=== PATIENT | female | born 1995 | race Caucasian/White ===

== ENCOUNTER 2016-11-21 08:09 | Emergency (ER) | payer BC, MEDICAID ==
--- NOTE | 2016-11-21 08:24 | EDM.PDOC ---
ED HPI GENERAL MEDICAL PROBLEM - General Chief Complaint: ENT Problem Stated Complaint: DENTAL COMPLAINT Time Seen by Provider: 11/21/16 08:16 Source of Information: Reports: Patient, Family (father) History Limitations: Reports: No Limitations - History of Present Illness INITIAL COMMENTS - FREE TEXT/NARRATIVE: 21-year-old female presents to the ED with severe left wyatt-facial swelling. She reports she's been traveling back and forth to [facility] on a daily basis receiving intramuscular shots of antibiotic( presumeable Rocephin) as well as oral antibiotics ( Augmenting 875mg) and the the problem is worsening. She apparently did see Dr. Segovia local dentist on Saturday last week and was started on amoxicillin. She can't open her mouth at all i.e. severe trismus . Can open only about a centimeter in the midline. Marked left hemifacial swelling almost the size of a small baseball. She did believe is that the pain and infection started from an partially erupted wisdom tooth on the left side lower mandible. Patient can't eat and she can't hardly swallow due to the severity of the pain. Onset: Gradual Onset Date: 11/16/16 Duration: Day(s): Location: Reports: Face Quality: Reports: Ache, Throbbing Severity: Severe Improves with: Reports: None Worsens with: Reports: None Context: Denies: Activity, Exercise, Lifting, Sick Contact, Trauma, Other Associated Symptoms: Reports: Loss of Appetite, Malaise, Weakness Treatments [employer]: Reports: Acetaminophen Left Oral/Mouth Pain Score (Numeric/FACES): 8 - Related Data Allergies Allergy/AdvReac Type Severity Reaction Status Date / Time No Known Allergies Allergy Verified 11/21/16 08:23 Home Meds: Home Meds Amoxicillin/Potassium Clav [Augmentin 875-125 Tablet] 1 each PO BID 11/21/16 [ History] Hydrocodone/Acetaminophen [Lorcet 5-325 mg Tablet] 1 each PO Q6H PRN 11/21/16 [ History] Lidocaine 2 %. 15 ml PO Q6H PRN 11/21/16 [History] Social & Family History - Living Situation & Occupation Living situation: Reports: Single Occupation: Employed ED ROS ENT - Review of Systems Review Of Systems: See Below Constitutional: Reports: Fever, Malaise, Weakness, Fatigue, Decreased Appetite, Weight Loss. Denies: Chills HEENT: Reports: Ear Pain (Pain is referred sure left ear from the left side of face.), Throat Pain (Left side), Other Respiratory: Reports: No Symptoms (Left wyatt-facial swelling.) Cardiovascular: Reports: No Symptoms Endocrine: Reports: No Symptoms GI/Abdominal: Reports: No Symptoms : Reports: No Symptoms Musculoskeletal: Reports: No Symptoms Skin: Reports: No Symptoms Neurological: Reports: No Symptoms Psychiatric: Reports: No Symptoms Hematologic/Lymphatic: Reports: No Symptoms Immunologic: Reports: Seasonal Allergy ED EXAM, ENT - Physical Exam Exam: See Below Exam Limited By: No Limitations General Appearance: Alert, WD/WN, Mild Distress Eye Exam: Bilateral Eye: Normal Inspection Ears: Normal TMs Mouth/Throat: Other (I'm hardly able to visualize any of the intraoral cavity due to severe trismus in the midline she can open less than a centimeter. It appears there is gingiva hypertrophy and swelling along the partially erupted third molar tooth inferiorly. I cannot see any purulent material or obvious abscess. Tongue is moist.) Head: Atraumatic, Normocephalic, Facial Swelling (Severe left wyatt-facial swelling almost the half the size of a baseball which is firm and hard and very tender to touch.) Neck: Normal Inspection, Supple, Non-Tender, Full Range of Motion. No: Lymphadenopathy (L), Lymphadenopathy (R) Respiratory/Chest: No Respiratory Distress, Lungs Clear, Normal Breath Sounds, No Accessory Muscle Use Cardiovascular: Normal Peripheral Pulses, Regular Rate, Rhythm, No Edema, No Gallop, No Murmur, No Rub Back: Normal Inspection, Full Range of Motion Extremities: Normal Inspection, Normal Range of Motion, Non-Tender, Normal Capillary Refill Neurological: Alert, Oriented, CN II-XII Intact, Normal Cognition, Normal Gait, Normal Reflexes Psychiatric: Normal Affect, Normal Mood Skin: Warm, Dry, Intact, Normal Color, No Rash Course - Vital Signs Last Recorded V/S: Last Vital Signs Temp 36.3 C 11/21/16 08:14 Pulse 81 11/21/16 08:14 Resp 16 11/21/16 08:14 BP 125/82 11/21/16 08:14 Pulse Ox 98 11/21/16 08:14 - Orders/Labs/Meds Orders: Active Orders 24 hr Category Date Time Status Dextrose 5%-0.9% NaCl [Dextrose 5%-Normal Saline] 1,000 Med 11/21/16 08:30 Active ml IV ASDIRECTED Ketorolac [Toradol] Med 11/21/16 08:30 Active 30 mg IVPUSH ONETIME Medication Orders Dextrose/Sodium Chloride (Dextrose 5%-Normal Saline) 1,000 mls @ 999 mls/hr IV ASDIRECTED ANNABEL Last Admin: 11/21/16 08:35 Dose: 999 mls/hr Ketorolac Tromethamine (Toradol) 30 mg IVPUSH ONETIME ANNABEL Last Admin: 11/21/16 08:39 Dose: 30 mg Labs: Laboratory Tests 11/21/16 11/21/16 11/21/16 Range/Units 08:25 08:25 08:25 WBC 14.66 H (3.98-10.04) K/mm3 RBC 4.55 (3.98-5.22) M/mm3 Hgb 14.6 (11.2-15.7) gm/L Hct 43.2 (34.1-44.9) % MCV 94.9 H (79.4-94.8) fl MCH 32.1 (25.6-32.2) pg MCHC 33.8 (32.2-35.5) g/dl RDW Std Deviation 39.8 (36.4-46.3) fL Plt Count 411 H (182-369) K/mm3 MPV 9.6 (9.4-12.3) fl Neutrophils % (Manual) 77 H (40-60) % Band Neutrophils % 0 (0-10) % Lymphocytes % (Manual) 13 L (20-40) % Atypical Lymphs % 0 % Monocytes % (Manual) 8 (2-10) % Eosinophils % (Manual) 2 (0.7-5.8) % Basophils % (Manual) 0 L (0.1-1.2) Platelet Estimate Adequate RBC Morph Comment Normal Sodium 136 (136-145) mEq/L Potassium 3.3 L (3.5-5.1) mEq/L Chloride 98 (98-107) mEq/L Carbon Dioxide 26 (21-32) mEq/L Anion Gap 15.3 H (5-15) BUN 5 L (7-18) mg/dL Creatinine 0.7 (0.55-1.02) mg/dL Est Cr Clr Drug Dosing 117.01 mL/min Estimated GFR (MDRD) > 60 (>60) mL/min BUN/Creatinine Ratio 7.1 L (14-18) Glucose 81 (74-106) mg/dL Calcium 9.4 (8.5-10.1) mg/dL Total Bilirubin 0.9 (0.2-1.0) mg/dL AST 15 (15-37) U/L ALT 19 (14-59) U/L Alkaline Phosphatase 66 (46-116) U/L C-Reactive Protein 13.0 H* (<1.0) mg/dL Total Protein 7.9 (6.4-8.2) g/dl Albumin 3.7 (3.4-5.0) g/dl Globulin 4.2 gm/dL Albumin/Globulin Ratio 0.9 L (1-2) HCG, Qual Negative (NEGATIVE) Meds: Medications Generic Name Dose Route Start Last Admin Trade Name Sakina PRN Reason Stop Dose Admin Dextrose/Sodium Chloride 1,000 mls @ 999 mls/hr 11/21/16 08:30 11/21/16 08:35 Dextrose 5%-Normal Saline IV 999 mls/hr ASDIRECTED ANNABEL Administration Ketorolac Tromethamine 30 mg 11/21/16 08:30 11/21/16 08:39 Toradol IVPUSH 30 mg ONETIME ANNABEL Administration Discontinued Medications Generic Name Dose Route Start Last Admin Trade Name Sakina PRN Reason Stop Dose Admin Hydromorphone HCl 0.5 mg 11/21/16 08:25 11/21/16 08:41 Dilaudid IVPUSH 11/21/16 08:26 0.5 mg ONETIME ONE Administration Hydromorphone HCl 0.5 mg 11/21/16 11:25 11/21/16 11:43 Dilaudid IVPUSH 11/21/16 11:26 0.5 mg ONETIME ONE Administration Clindamycin Phosphate 900 mg/ 106 mls @ 100 mls/hr 11/21/16 08:25 11/21/16 08 :44 Sodium Chloride IV 11/21/16 09:28 100 mls/hr ONETIME ONE Administration Ceftriaxone Sodium 1 gm/ 100 mls @ 200 mls/hr 11/21/16 10:00 11/21/16 10:10 Sodium Chloride IV 11/21/16 10:29 200 mls/hr ONETIME ONE Administration Ondansetron HCl 4 mg 11/21/16 08:25 11/21/16 08:37 Zofran IVPUSH 11/21/16 08:26 4 mg ONETIME ONE Administration - Radiology Interpretation Free Text/Narrative:: 20-year-old female arrives in the ED with severe left wyatt-facial swelling secondary to a dental abscess presumably a left lower wisdom tooth that has been partially erupted for a period of time. She been going to [facility] and receiving intramuscular injections for the last 2-3 days without getting any improvement. She is also on oral antibiotics. Condition seems to have gone been going on for about 6-7 days. At this time the abscess or soft tissue swelling is confined to the left wyatt-face on the long the mandible does not appear to be extending into her lateral neck at this time. She's not sure she could be or not therefore presents just to be done with routine labs. IV will be D5 normal saline at open. Given clindamycin 900 mg IV. Toradol 30 g IV for pain relief with Dilaudid 0.5 an Zofran 4 mg IV as well. She is going to need to see maxillofacial surgeon to have more emergent management of this infective process. She will require general anesthesia to be able to get access to the tooth. Will discuss case with maxillofacial surgeon once CT is completed. - Re-Assessments/Exams Free Text/Narrative Re-Assessment/Exam: 11/21/16 08:56 hCG just was negative. She will therefore proceed to CT of the maxillofacial structures. 11/21/16 09:31 CT of the facial bones reveals no obvious dental caries. Large soft tissue mass left wyatt-facial cheek area. Low density is noted within the soft tissue swelling compatible with a phlegmon and early abscess formation. Soft tissue density measures approximate 6.6 x 2.4 cm. Mild associated enlarged lymph nodes are noted within the left side of the neck likely reactive on the basis of the above infection. Unable to find or locate an oral facial surgeon or oral surgeon in [place] at this time. usually does plastic surgery but does not do dental extractions. Dr. Forman is out of the workplace at present due to health reasons. I will try and locate a dentist in [place] that perhaps has privileges to remove teeth under anesthesia as I don't think that they'll be able to perform the procedure without a general anesthetic due to her severe trismus. The only other option would be to leave her on IV antibiotics in the hospital such as clindamycin 900 mg every 6 hours and Rocephin 2 g once daily. Lab work revealed a total white count of 14.66 with 77% it feels and no bands hemoglobin is 14.6 platelets 411,000 chemistry shows just a slight dip in her potassium at 3.3. She is still maintaining a normal anion gap of 15.3 CRP is elevated at 13.0. 11/21/16 10:21 clinical coordinator at [facility] was kind enough to keep working at the problem and identified that Dr. Lombardi who practices your nose and throat surgery can also extracted teeth due to his maxillofacial training. Therefore he is willing to accept the patient with a plan to extracted tooth and improve her abscess and swelling but right now [facility] hospital is full with no bands. Therefore clinical coordinator will be called me back once a bed is available and tentatively will be admitted to the hospital per hospitalist staffing with a consult to Dr. Lombardi in this regard. She'll remain nothing by mouth during this timeframe she can't eat anyways due to her severe trismus. I will hang Rocephin 1 g intravenously while she is waiting. She reports at present her pain is under control. 11/21/16 11:26 patient is having more pain in her left wyatt-face at this time. Will repeat Dilaudid 0.5 mg IV for pain relief. 11/21/16 11:54 bed has become available at [facility] and they called. She will therefore be able to transfer that facility per her father. She is to be a direct admission. Departure - Departure Time of Disposition: 11:55 Disposition: DC/Tfer to [facility] 02 Condition: Serious Clinical Impression: Dental abscess, Periapical abscess with facial involvement - Discharge Information Referrals: PCP,None [Primary Care Provider] - Forms: ED Department Discharge - My Orders Last 24 Hours: My Active Orders 11/21/16 08:30 Dextrose 5%-0.9% NaCl [Dextrose 5%-Normal Saline] 1,000 ml IV ASDIRECTED Ketorolac [Toradol] 30 mg IVPUSH ONETIME - Assessment/Plan Last 24 Hours: My Active Orders 11/21/16 08:30 Dextrose 5%-0.9% NaCl [Dextrose 5%-Normal Saline] 1,000 ml IV ASDIRECTED Ketorolac [Toradol] 30 mg IVPUSH ONETIME
[2016-11-21] MEDS ORDERED: Ondansetron 4 MG/2 ML SDV IVPUSH ONE (08:25)
[2016-11-21] MEDS ORDERED: HYDROmorphone 0.5 MG/0.5 ML Syringe IVPUSH ONE ×2 (08:25→11:25)
[2016-11-21] MEDS ORDERED: Clindamycin Phosphate 900 MG in Sodium Chloride 0.9% 100 ML IV ONE (08:25)
[2016-11-21] MEDS ORDERED: Dextrose 5%-0.9% NaCl 1,000 ML IV SCH (08:30)
[2016-11-21] MEDS ORDERED: Ketorolac 30 MG/ML SDV IVPUSH SCH (08:30)
--- NOTE | 2016-11-21 09:51 | CT ---
CT maxillofacial Technique: Multiple axial sections were obtained from below the mandible superiorly to above the orbits. Intravenous contrast not utilized. Findings: Diffuse soft tissue density is seen adjacent to the left side of the mandible. Low density is noted within this area compatible with phlegmon and early abscess. Diffuse subcutaneous soft tissue swelling is noted. Soft tissue density measures approximately 6.6 x 2.4 cm. This finding is indistinguishable from the left masseter muscle. Mildly enlarged lymph nodes are noted within the left side of the neck likely on a reactive basis from the infection. No discrete tooth abscess is seen. Mandible shows no erosions. Axilla shows no erosions. Paranasal sinuses are clear. Right and left globes are symmetric. Mastoid sinuses and middle ear cavities are clear. Impression: 1. Diffuse soft tissue density indistinguishable from the left masseter muscle within the left cheek adjacent to the mandible. There is low density within the soft tissue finding and findings are felt compatible with phlegmon with early abscess. Diffuse subcutaneous edema is noted. Reactive lymph nodes are seen within the left side of the neck. 2. No discrete dental abscess is appreciated. 3. No sinus disease is seen. Diagnostic code #5
[2016-11-21] MEDS ORDERED: cefTRIAXone 1 GM in Sodium Chloride 0.9% 100 ML IV ONE (10:00)
[2016-11-21 12:28] VITALS: BP 102/78
== END 2016-11-21 12:20 ==
LOC: JD.ED 08:09
DX: K04.7 Periapical abscess without sinus (principal)
CPT/HCPCS: 36415; 70486; 80053; 84703; 85025; 86140; 96361; 96365; 96367; 96375; 96376; 99285; J0696; J1170; J1885; J2405; J7030; J7042; 99284

== ENCOUNTER 2018-05-15 19:29 | Emergency (ER) | payer SELFPAY ==
[2018-05-15 19:38] VITALS: BP 126/88
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
== END 2018-05-15 19:51 ==
LOC: JD.ED 19:29
DX: F10.120 Alcohol abuse with intoxication, uncomplicated (principal); V89.2XXA Person injured in unspecified motor-vehicle accident, traffic, initial encounter
CPT/HCPCS: 36415; 80053; 85025; 99283; G0480

== ENCOUNTER 2018-06-03 21:16 | Emergency (ER) | payer MEDICAID ==
[2018-06-03 21:33] VITALS: BP 109/71
--- NOTE | 2018-06-03 21:40 | EDM.PDOC ---
ED HPI GENERAL MEDICAL PROBLEM - General Chief Complaint: Genitourinary Problem Stated Complaint: LEFT SIDE PAIN Time Seen by Provider: 06/03/18 21:40 Source of Information: Reports: Patient History Limitations: Reports: No Limitations - History of Present Illness INITIAL COMMENTS - FREE TEXT/NARRATIVE: 22-year-old female presents the ED with left flank pain which is gradually intensified over the last week. Associated mild nausea. No vomiting or diarrhea. Poor appetite. Not aware of any fever or chills per se. She reports that she does not have any dysuria urgency frequency or noted blood in her urine. She's had a previous urinary tract infection and knows what dysuria feels like. She also reports she's had a previous kidney infections on multiple occasions. Onset: Gradual Onset Date: 05/27/18 Duration: Day(s):, Getting Worse Location: Reports: Back (Left flank pain.) Quality: Reports: Ache, Throbbing Severity: Moderate (8 out of 10) Improves with: Reports: None Worsens with: Reports: None Context: Denies: Activity, Exercise, Lifting, Sick Contact, Trauma, Other Associated Symptoms: Reports: Nausea/Vomiting (Mild nausea at times). 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: Reports: Acetaminophen, Other (see below) Left Flank Pain Score (Numeric/FACES): 5 - Related Data Allergies Allergy/AdvReac Type Severity Reaction Status Date / Time No Known Allergies Allergy Verified 06/03/18 21:33 Home Meds: Home Meds Sulfamethoxazole/Trimethoprim [Bactrim Ds Tablet] 1 each PO BID #18 tablet 06/03 [Rx] Past Medical History - Past Health History Medical/Surgical History: Denies Medical/Surgical History Genitourinary History: Reports: Pyelonephritis, UTI, Recurrent (She states on multiple occasions) Social & Family History - Family History Family Medical History: Noncontributory - Tobacco Use Smoking Status *Q: Never Smoker - Caffeine Use Caffeine Use: Reports: Coffee - Recreational Drug Use Recreational Drug Use: No - Living Situation & Occupation Living situation: Reports: Single Occupation: Employed ED ROS GENERAL - Review of Systems Review Of Systems: See Below Constitutional: Reports: Chills, Malaise (Or chills at times.), Fatigue, Decreased Appetite. Denies: Fever HEENT: Reports: No Symptoms Respiratory: Reports: No Symptoms Cardiovascular: Reports: No Symptoms Endocrine: Reports: No Symptoms GI/Abdominal: Reports: Abdominal Pain. Denies: Anorexia, Black Stool, Bloody Stool (Mild left upper quadrant of the abdomen), Constipation, Diarrhea, Decreased Appetite, Difficulty Swallowing, Distension, Flatus, Hematemesis, Hematochezia, Melena : Reports: Flank Pain (Left side) Musculoskeletal: Reports: No Symptoms Skin: Reports: No Symptoms Neurological: Reports: No Symptoms Psychiatric: Reports: No Symptoms Hematologic/Lymphatic: Reports: No Symptoms Immunologic: Reports: No Symptoms ED EXAM, RENAL/ - Physical Exam Exam: See Below Exam Limited By: Intoxication (Appears to be intoxicated by alcohol mildly.) General Appearance: Alert, WD/WN, Mild Distress (Right apprehensive about the exam.), Other (Vital signs are stable with no fever. Pulse however is 116 at rest. Sats are reported OB only 95%. Her hands are cool to touch.) Eye Exam: Bilateral Eye: Normal Inspection Throat/Mouth: Normal Inspection, Normal Lips, Normal Oropharynx (Tongue is mildly dry and coated), Other Head: Atraumatic, Normocephalic Neck: Normal Inspection, Supple, Full Range of Motion. No: Lymphadenopathy (L) , Lymphadenopathy (R) Respiratory/Chest: No Respiratory Distress, Lungs Clear, Normal Breath Sounds, No Accessory Muscle Use Cardiovascular: No Edema, No Gallop, No Murmur, No Rub, Tachycardia ( Tachycardia at rest 1 16/m) GI/Abdominal: Soft, No Organomegaly, No Distention, No Abnormal Bruit, No Mass, Pelvis Stable, Tender (Bowel sounds are decreased from the norm. Moderately tender to deep palpation left upper quadrant of the abdomen.), Abnormal Bowel Sounds Back Exam: CVA Tenderness (L) (Moderate). No: CVA Tenderness (R) Extremities: Normal Inspection, Normal Range of Motion, Non-Tender, No Pedal Edema Neurological: Alert, Oriented, CN II-XII Intact, Normal Cognition, Normal Gait Psychiatric: Anxious Skin Exam: Warm, Dry, Intact, Normal Color, No Rash Course - Vital Signs Last Recorded V/S: Last Vital Signs Temp 36.6 C 06/03/18 21:30 Pulse 116 H 06/03/18 21:30 Resp 16 06/03/18 21:30 BP 109/71 06/03/18 21:30 Pulse Ox 95 06/03/18 21:30 - Orders/Labs/Meds Labs: Laboratory Tests 06/03/18 Range/Units 21:39 Urine Color Tariq H (Yellow) Urine Appearance Turbid H (Clear) Urine pH 6.0 (5.0-8.0) Ur Specific [place] 1.025 (1.005-1.030) Urine Protein 2+ H (Negative) Urine Glucose (UA) Negative (Negative) Urine Ketones 2+ H (Negative) Urine Occult Blood 2+ H (Negative) Urine Nitrite Positive H (Negative) Urine Bilirubin 1+ H (Negative) Urine Urobilinogen 1.0 (0.2-1.0) Ur Leukocyte Esterase 3+ H (Negative) Urine RBC 10-20 H (0-5) /hpf Urine WBC >100 H (0-5) /hpf Ur Epithelial Cells Not Reportable Ur Squamous Epith Cells 0-5 (0-5) /hpf Urine Bacteria Many H (FEW) /hpf Urine Mucus Many H (FEW) /hpf Meds: Medications Discontinued Medications Generic Name Dose Route Start Last Admin Trade Name Freq PRN Reason Stop Dose Admin Ibuprofen 600 mg 06/03/18 21:53 06/03/18 22:08 Motrin PO 06/03/18 21:54 600 mg ONETIME ONE Administration Levofloxacin 500 mg 06/03/18 22:21 06/03/18 22:43 Levaquin PO 06/03/18 22:22 500 mg ONETIME ONE Administration Ondansetron HCl 4 mg 06/03/18 21:52 06/03/18 22:07 Zofran Odt PO 06/03/18 21:53 4 mg ONETIME ONE Administration Oxycodone/Acetaminophen 1 tab 06/03/18 21:53 06/03/18 22:08 Percocet 325-5 Mg PO 06/03/18 21:54 Not Given ONETIME ONE - Radiology Interpretation Free Text/Narrative:: 22-year-old female presents to the ED with a history of gradually worsening left flank pain over the last week. She believes she has a kidney infection that she's had similar symptoms many times in the past. Examination does reveal left cuspid tinkling ankle tenderness as well as tenderness left upper quadrant of the abdomen on deep palpation. Afebrile since my exam. Appears to be mildly intoxicated by alcohol. Appears to be mildly volume depleted. Plan urinalysis and KUB ordered. Given Motrin 600 mg by mouth for fever and pain relief and offered a Percocet tablet for pain and she appears to be in significant discomfort. However she refused the Percocet. - Re-Assessments/Exams Free Text/Narrative Re-Assessment/Exam: 06/03/18 22:19 patient refused KUB of her abdomen.Urinalysis is back. It is tariq in color. 2+ proteinuria 2+ ketones 2+ occult blood positive nitrates. 1+ bilirubin 3+ leukocyte Esterase. microscopy of urine reveals 20 RBCs per power field and greater than 100 WBC `s per HPF and many bacteria. Urine culture ordered. Plan she'll be treated with Levaquin 500 mg by mouth now. She'll then fill a prescription for Bactrim double strength 1 tablet twice daily for the next 9 days starting tomorrow. Departure - Departure Time of Disposition: 22:21 Disposition: Home, Self-Care 01 Condition: Fair Clinical Impression: Pyelonephritis, UTI, Urinary tract infectious disease, Pyelonephritis - Discharge Information *PRESCRIPTION DRUG MONITORING PROGRAM REVIEWED*: Not Applicable *COPY OF PRESCRIPTION DRUG MONITORING REPORT IN PATIENT PERI: Not Applicable Prescriptions: Sulfamethoxazole/Trimethoprim [Bactrim Ds Tablet] 1 each PO BID #18 tablet Instructions: Pyelonephritis, Adult, [id number], Urinary Tract Infection, Adult Referrals: PCP,None [Primary Care Provider] - Forms: ED Department Discharge Additional Instructions: Evaluation in the emergency room tonight in regards to pain in the left flank. Not aware of any significant fever but noted chills last few days. Note pain with urination or frequency. Examination revealed acute pain in the distribution of the left kidney and left upper abdominal tenderness suggestive of underlying infection in the urinary tract. Urinalysis proved to be strongly positive for urinary tract infection. Therefore you have a kidney infection on the left side. You are treated with Motrin 600 mg by mouth. He refused Percocet tablet for pain relief. Initial dose of antibiotic is Levaquin 500 mg given by mouth in the ED. You will need to fill a prescription for antibiotic tomorrow Bactrim double strength 1 tablet twice daily for the next 9 days to clear up infection completely. Continues use Motrin 600 mg every 6 hours to relieve pain and inflammation. Expect marked improvement over the next 36-48 hours. Of course drink plenty of fluids to flush the urinary tract system. Need to return to the hospitalist with develop high fever greater than 102 or severe chills/ shakes for nausea and vomiting.
[2018-06-03] MEDS ORDERED: Ondansetron 4 MG Tab.DIS PO ONE (21:52)
[2018-06-03] MEDS ORDERED: Ibuprofen 600 MG Tab PO ONE (21:53)
[2018-06-03] MEDS ORDERED: Acetaminophen/oxyCODONE 325-5 MG Tab PO ONE (21:53)
[2018-06-03] MEDS ORDERED: Levofloxacin 250 MG Tab PO ONE (22:21)
== END 2018-06-03 22:45 | disposition home or self-care (01) ==
LOC: JD.ED 21:16
DX: N12 Tubulo-interstitial nephritis, not specified as acute or chronic (principal)
CPT/HCPCS: 81001; 87086; 87088; 87186; 99284; A9270

== ENCOUNTER 2018-08-07 14:21 | Inpatient (IN) | payer MEDICAID, OTHER ==
[2018-08-07] MEDS ORDERED: Sodium Chloride 0.9% 10 ML Syringe FLUSH PRN ×2 (16:04→20:50)
[2018-08-07] MEDS ORDERED: Sodium Chloride 0.9% 1,000 ML IV ONE (16:04)
[2018-08-07 16:56] LABS: ACETAMINOPHEN 0 ug/mL (10-30)
--- NOTE | 2018-08-07 17:54 | EDM.PDOCBH ---
ED HPI GENERAL MEDICAL PROBLEM - General Chief Complaint: Behavioral/Psych Stated Complaint: NEEDS BACK IN TO [facility] Time Seen by Provider: 08/07/18 15:55 Source of Information: Reports: Patient, Family (mother) History Limitations: Reports: No Limitations - History of Present Illness INITIAL COMMENTS - FREE TEXT/NARRATIVE: 22-year-old female brought in for suicide attempts. Reportedly the patient tried to commit suicide last night and today around noon. She attempted to strangle herself using a vacuum cord and when this did not work she attempted to use a trash bag. Reportedly she had loss of consciousness with this episode, unclear how long she was out for. She is currently denying any neck pain, throat pain or any difficulty breathing. Patient's is lethargic; most of the history is obtained from her mother. 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 She also reported she drink about 3 beers today. Mom also states she used to use marijuana but no longer for this. mom states she also heard that she was huffing. Patient went to [facility] 3 weeks ago and checked herself out of the crisis bed after about 30 minutes. She has not seen a psychiatrist in the last 5 years. Has diagnosis of borderline personality disorder and anxiety disorder. she is not currently on any medications. she currently lives in an apartment with her cousin who also abuses illicit substances. Mom states she has not been able to hold a job in several years. - Related Data Allergies Allergy/AdvReac Type Severity Reaction Status Date / Time No Known Allergies Allergy Verified 06/03/18 21:33 Home Meds: Home Meds . [No Known Home Meds] 08/07/18 [History] Past Medical History - Past Health History Medical/Surgical History: Denies Medical/Surgical History Genitourinary History: Reports: Pyelonephritis, UTI, Recurrent Social & Family History - Family History Family Medical History: Noncontributory - Tobacco Use Smoking Status *Q: Current Every Day Smoker Years of Tobacco use: 2 Packs/Tins Daily: 1 - Caffeine Use Caffeine Use: Reports: Coffee - Alcohol Use Date of Last Drink: 08/07/18 - Recreational Drug Use Recreational Drug Use: Yes Drug Use in Last 12 Months: Yes Recreational Drug Type: Reports: Other (see below) Other Recreational Drug Type: "anything I can get" Recreational Drug Last Use: 08/04/18 - Living Situation & Occupation Living situation: Reports: Single Occupation: Employed ED ROS GENERAL - Review of Systems Review Of Systems: See Below HEENT: Denies: Throat Pain Respiratory: Denies: Shortness of Breath, Cough Cardiovascular: Denies: Chest Pain Skin: Reports: Bruising (neck) Psychiatric: Reports: Suicidal Ideation ED EXAM, BEHAVIORAL HEALTH - Physical Exam Exam: See Below Exam Limited By: Intoxication General Appearance: No Apparent Distress, Lethargic, Other (smells of etoh) Eye Exam: Bilateral Eye: EOMI, Normal Inspection, PERRL Ears: Normal External Exam, Normal Canal, Hearing Grossly Normal, Normal TMs Nose: Normal Inspection Throat/Mouth: Normal Inspection, Normal Lips, Normal Oropharynx, Normal Voice, No Airway Compromise, Other (no petichae to the soft palate noted) Head: Atraumatic, Normocephalic Neck: Normal Inspection Respiratory/Chest: No Respiratory Distress, Lungs Clear, Normal Breath Sounds Cardiovascular: Normal Peripheral Pulses, Regular Rate, Rhythm, No Murmur Neurological: Other (arousable ) Psychiatric: Poor Eye Contact, Uncooperative, Suicidal Plan, Suicidal Thoughts, Threatening Behavior Skin Exam: Warm, Normal color, Signs of self injury (bruises to the bilteral sides of the neck) COURSE, BEHAVIORAL HEALTH COMP - Course Vital Signs: Last Vital Signs Temp 98.5 F 08/08/18 07:52 Pulse 76 08/08/18 07:52 Resp 18 08/08/18 07:52 BP 98/72 08/08/18 07:52 Pulse Ox 97 08/08/18 07:52 Orders, Labs, Meds: Active Orders 24 hr Category Date Time Status Peripheral IV Care [RC] Q2HR Care 08/07/18 16:04 Active Sodium Chloride 0.9% [Saline Flush] Med 08/07/18 16:04 Active 10 ml FLUSH ASDIRECTED PRN Peripheral IV Insertion Adult [OM.PC] Routine Oth 08/07/18 16:04 Ordered Medication Orders Chlordiazepoxide HCl (Librium) 25 mg PO Q1H PRN PRN Reason: CIWAA >8 Miscellaneous Information (Remove Patch) 1 ea TRDERM 2100 ANNABEL Nicotine (Habitrol) 21 mg TRDERM 2100 ANNABEL Last Admin: 08/07/18 20:59 Dose: 21 mg Nicotine (Habitrol) 21 mg TRDERM ONETIME ONE Stop: 08/08/18 13:31 Ondansetron HCl (Zofran) 4 mg IV Q4H PRN PRN Reason: Nausea/Vomiting Sodium Chloride (Saline Flush) 10 ml FLUSH ASDIRECTED PRN PRN Reason: Keep Vein Open Last Admin: 08/07/18 16:25 Dose: 10 ml Laboratory Tests 08/07/18 08/07/18 08/07/18 Range/Units 16:20 16:20 16:20 WBC 7.78 (3.98-10.04) K/mm3 RBC 4.69 (3.98-5.22) M/mm3 Hgb 14.3 D (11.2-15.7) gm/L Hct 43.0 (34.1-44.9) % MCV 91.7 (79.4-94.8) fl MCH 30.5 (25.6-32.2) pg MCHC 33.3 (32.2-35.5) g/dl RDW Std Deviation 41.8 (36.4-46.3) fL Plt Count 354 (182-369) K/mm3 MPV 9.5 (9.4-12.3) fl Neutrophils % (Manual) 72 H (40-60) % Band Neutrophils % 0 (0-10) % Lymphocytes % (Manual) 15 L (20-40) % Atypical Lymphs % 0 % Monocytes % (Manual) 5 (2-10) % Eosinophils % (Manual) 5 (0.7-5.8) % Basophils % (Manual) 3 H (0.1-1.2) Platelet Estimate Adequate RBC Morph Comment Normal Puncture Site ABG pH (7.35-7.45) ABG pCO2 (35.0-45.0) mmHg ABG pO2 (80.0-100.0) mmHg ABG HCO3 (22.0-26.0) meq/L ABG O2 Saturation (96.0-97.0) % ABG Base Excess (-2-2.0) Karlos Test O2 Delivery Device FiO2 (21.00-100.00) % Sodium 142 (136-145) mEq/L Potassium 3.3 L (3.5-5.1) mEq/L Chloride 107 (98-107) mEq/L Carbon Dioxide 24 (21-32) mEq/L Anion Gap 14.3 (5-15) BUN 6 L (7-18) mg/dL Creatinine 0.6 (0.55-1.02) mg/dL Est Cr Clr Drug Dosing 140.60 mL/min Estimated GFR (MDRD) > 60 (>60) mL/min BUN/Creatinine Ratio 10.0 L (14-18) Glucose 99 (74-106) mg/dL Calcium 8.8 (8.5-10.1) mg/dL Total Bilirubin 0.3 (0.2-1.0) mg/dL AST 16 (15-37) U/L ALT 26 (14-59) U/L Alkaline Phosphatase 86 (46-116) U/L Total Protein 6.5 (6.4-8.2) g/dl Albumin 3.5 (3.4-5.0) g/dl Globulin 3.0 gm/dL Albumin/Globulin Ratio 1.2 (1-2) TSH 3rd Generation 0.667 (0.358-3.74) uIU/mL HCG, Qual Negative (NEGATIVE) Urine Color (Yellow) Urine Appearance (Clear) Urine pH (5.0-8.0) Ur Specific [place] (1.005-1.030) Urine Protein (Negative) Urine Glucose (UA) (Negative) Urine Ketones (Negative) Urine Occult Blood (Negative) Urine Nitrite (Negative) Urine Bilirubin (Negative) Urine Urobilinogen (0.2-1.0) Ur Leukocyte Esterase (Negative) Urine RBC (0-5) /hpf Urine WBC (0-5) /hpf Ur Squamous Epith Cells (0-5) /hpf Urine Bacteria (FEW) /hpf Urine Mucus (FEW) /hpf Salicylates (2.8-20) mg/dL Urine Opiates Screen (IVGIXK=161) Ur Buprenorphine Scrn (CUTOFF=10) Ur Oxycodone Screen (AKK7DQ=051) Urine Methadone Screen (NDURWQ=666) Ur Propoxyphene Screen (BSWLSK=136) Acetaminophen 0 L (10-30) ug/mL Ur Barbiturates Screen (NJYRIA=436) Ur Tricyclics Screen (WOPGWP=189) Ur Phencyclidine Scrn (CUTOFF=25) Ur Amphetamine Screen (JICWLI=917) U Methamphetamines Scrn (AJZIFG=806) U Benzodiazepines Scrn (XJLKOV=710) U Cocaine Metab Screen (SUQAIS=407) U Marijuana (THC) Screen (CUTOFF=50) Ethyl Alcohol 0.02 (0.00) gm% 08/07/18 08/07/18 08/07/18 Range/Units 16:20 17:24 17:25 WBC (3.98-10.04) K/mm3 RBC (3.98-5.22) M/mm3 Hgb (11.2-15.7) gm/L Hct (34.1-44.9) % MCV (79.4-94.8) fl MCH (25.6-32.2) pg MCHC (32.2-35.5) g/dl RDW Std Deviation (36.4-46.3) fL Plt Count (182-369) K/mm3 MPV (9.4-12.3) fl Neutrophils % (Manual) (40-60) % Band Neutrophils % (0-10) % Lymphocytes % (Manual) (20-40) % Atypical Lymphs % % Monocytes % (Manual) (2-10) % Eosinophils % (Manual) (0.7-5.8) % Basophils % (Manual) (0.1-1.2) Platelet Estimate RBC Morph Comment Puncture Site ABG pH (7.35-7.45) ABG pCO2 (35.0-45.0) mmHg ABG pO2 (80.0-100.0) mmHg ABG HCO3 (22.0-26.0) meq/L ABG O2 Saturation (96.0-97.0) % ABG Base Excess (-2-2.0) Karlos Test O2 Delivery Device FiO2 (21.00-100.00) % Sodium (136-145) mEq/L Potassium (3.5-5.1) mEq/L Chloride (98-107) mEq/L Carbon Dioxide (21-32) mEq/L Anion Gap (5-15) BUN (7-18) mg/dL Creatinine (0.55-1.02) mg/dL Est Cr Clr Drug Dosing mL/min Estimated GFR (MDRD) (>60) mL/min BUN/Creatinine Ratio (14-18) Glucose (74-106) mg/dL Calcium (8.5-10.1) mg/dL Total Bilirubin (0.2-1.0) mg/dL AST (15-37) U/L ALT (14-59) U/L Alkaline Phosphatase (46-116) U/L Total Protein (6.4-8.2) g/dl Albumin (3.4-5.0) g/dl Globulin gm/dL Albumin/Globulin Ratio (1-2) TSH 3rd Generation (0.358-3.74) uIU/mL HCG, Qual (NEGATIVE) Urine Color Yellow (Yellow) Urine Appearance Clear (Clear) Urine pH 7.0 (5.0-8.0) Ur Specific [place] 1.020 (1.005-1.030) Urine Protein Negative (Negative) Urine Glucose (UA) Negative (Negative) Urine Ketones Negative (Negative) Urine Occult Blood Negative (Negative) Urine Nitrite Negative (Negative) Urine Bilirubin Negative (Negative) Urine Urobilinogen 0.2 (0.2-1.0) Ur Leukocyte Esterase Negative (Negative) Urine RBC Not seen (0-5) /hpf Urine WBC 0-5 (0-5) /hpf Ur Squamous Epith Cells 5-10 H (0-5) /hpf Urine Bacteria Few (FEW) /hpf Urine Mucus Few (FEW) /hpf Salicylates 0.9 L (2.8-20) mg/dL Urine Opiates Screen Negative (WHDFCJ=045) Ur Buprenorphine Scrn Negative (CUTOFF=10) Ur Oxycodone Screen Negative (SDB9UO=101) Urine Methadone Screen Negative (XJXLJE=624) Ur Propoxyphene Screen Negative (RPBOOV=552) Acetaminophen (10-30) ug/mL Ur Barbiturates Screen Negative (ZEMPNS=512) Ur Tricyclics Screen Negative (HPQRYR=897) Ur Phencyclidine Scrn Negative (CUTOFF=25) Ur Amphetamine Screen Negative (CPRHYY=041) U Methamphetamines Scrn Presumptive positive H (RDNGDA=800) U Benzodiazepines Scrn Negative (PCUNQL=166) U Cocaine Metab Screen Negative (AYTQBU=643) U Marijuana (THC) Screen Presumptive positive H (CUTOFF=50) Ethyl Alcohol (0.00) gm% 08/07/18 Range/Units 18:23 WBC (3.98-10.04) K/mm3 RBC (3.98-5.22) M/mm3 Hgb (11.2-15.7) gm/L Hct (34.1-44.9) % MCV (79.4-94.8) fl MCH (25.6-32.2) pg MCHC (32.2-35.5) g/dl RDW Std Deviation (36.4-46.3) fL Plt Count (182-369) K/mm3 MPV (9.4-12.3) fl Neutrophils % (Manual) (40-60) % Band Neutrophils % (0-10) % Lymphocytes % (Manual) (20-40) % Atypical Lymphs % % Monocytes % (Manual) (2-10) % Eosinophils % (Manual) (0.7-5.8) % Basophils % (Manual) (0.1-1.2) Platelet Estimate RBC Morph Comment Puncture Site Rt radial ABG pH 7.41 (7.35-7.45) ABG pCO2 38.8 (35.0-45.0) mmHg ABG pO2 91.0 (80.0-100.0) mmHg ABG HCO3 23.9 (22.0-26.0) meq/L ABG O2 Saturation 97.9 H (96.0-97.0) % ABG Base Excess -0.1 (-2-2.0) Karlos Test Positive O2 Delivery Device Room air FiO2 21.00 (21.00-100.00) % Sodium (136-145) mEq/L Potassium (3.5-5.1) mEq/L Chloride (98-107) mEq/L Carbon Dioxide (21-32) mEq/L Anion Gap (5-15) BUN (7-18) mg/dL Creatinine (0.55-1.02) mg/dL Est Cr Clr Drug Dosing mL/min Estimated GFR (MDRD) (>60) mL/min BUN/Creatinine Ratio (14-18) Glucose (74-106) mg/dL Calcium (8.5-10.1) mg/dL Total Bilirubin (0.2-1.0) mg/dL AST (15-37) U/L ALT (14-59) U/L Alkaline Phosphatase (46-116) U/L Total Protein (6.4-8.2) g/dl Albumin (3.4-5.0) g/dl Globulin gm/dL Albumin/Globulin Ratio (1-2) TSH 3rd Generation (0.358-3.74) uIU/mL HCG, Qual (NEGATIVE) Urine Color (Yellow) Urine Appearance (Clear) Urine pH (5.0-8.0) Ur Specific [place] (1.005-1.030) Urine Protein (Negative) Urine Glucose (UA) (Negative) Urine Ketones (Negative) Urine Occult Blood (Negative) Urine Nitrite (Negative) Urine Bilirubin (Negative) Urine Urobilinogen (0.2-1.0) Ur Leukocyte Esterase (Negative) Urine RBC (0-5) /hpf Urine WBC (0-5) /hpf Ur Squamous Epith Cells (0-5) /hpf Urine Bacteria (FEW) /hpf Urine Mucus (FEW) /hpf Salicylates (2.8-20) mg/dL Urine Opiates Screen (WEPCSD=816) Ur Buprenorphine Scrn (CUTOFF=10) Ur Oxycodone Screen (QZB0DH=903) Urine Methadone Screen (OTRUTR=625) Ur Propoxyphene Screen (TVTSXX=519) Acetaminophen (10-30) ug/mL Ur Barbiturates Screen (PWBLMI=569) Ur Tricyclics Screen (IBHJWO=919) Ur Phencyclidine Scrn (CUTOFF=25) Ur Amphetamine Screen (RCWGWP=791) U Methamphetamines Scrn (MPRJRD=832) U Benzodiazepines Scrn (XTVUHI=375) U Cocaine Metab Screen (LGUMDR=553) U Marijuana (THC) Screen (CUTOFF=50) Ethyl Alcohol (0.00) gm% Medications Generic Name Dose Route Start Last Admin Trade Name Freq PRN Reason Stop Dose Admin Chlordiazepoxide HCl 25 mg 08/07/18 20:42 Librium PO Q1H PRN CIWAA >8 Miscellaneous Information 1 ea 08/08/18 21:00 Remove Patch TRDERM 2100 ANNABEL Nicotine 21 mg 08/07/18 21:00 08/07/18 20:59 Habitrol TRDERM 21 mg 2100 ANNABEL Administration Nicotine 21 mg 08/08/18 13:30 Habitrol TRDERM 08/08/18 13:31 ONETIME ONE Ondansetron HCl 4 mg 08/07/18 20:50 Zofran IV Q4H PRN Nausea/Vomiting Sodium Chloride 10 ml 08/07/18 16:04 08/07/18 16:25 Saline Flush FLUSH 10 ml ASDIRECTED PRN Administration Keep Vein Open Discontinued Medications Generic Name Dose Route Start Last Admin Trade Name Freq PRN Reason Stop Dose Admin Sodium Chloride 1,000 mls @ 999 mls/hr 08/07/18 16:04 08/07/18 16:25 Normal Saline IV 08/07/18 17:04 999 mls/hr ONETIME ONE Administration Lorazepam 1 mg 08/07/18 19:06 08/07/18 19:10 Ativan IVPUSH 08/07/18 19:07 1 mg ONETIME ONE Administration Lorazepam Confirm 08/07/18 19:07 08/07/18 19:28 Ativan Administered 08/07/18 19:08 Not Given Dose 2 mg .ROUTE .STK-MED ONE Nicotine 21 mg 08/08/18 09:00 Habitrol TRDERM DAILY ANNABEL Potassium Chloride 20 meq 08/07/18 21:15 08/08/18 08:04 Klor-Con M20 PO 08/08/18 09:01 20 meq BID ANNABEL Administration Sodium Chloride 10 ml 08/07/18 20:50 Saline Flush FLUSH ASDIRECTED PRN Keep Vein Open Re-Assessment/Re-Exam: 18:00 I do feel she needs inpatient psychiatric care and is not a candidate for [facility]. Her lethargy is likely from coming off methamphetamine, however, given her current state and attempted strangulation earlier I feel she would be best served observed in the hospital before going to inpatient psych. With the bruising to the neck and reported LOC concern she may develop swelling to the neck which may impede airway. This is unlikely but should be observed before going to inpatient psych. 24 hour hold paperwork has been completed. Spoke with Dr. Landry who requested an ABG. He would like her to go to the ICU due to concerns over airway. She will be a 1:1. Admitted under Dr. Landry to the ICU. Departure - Departure Time of Disposition: 18:00 Disposition: Admitted As Inpatient 64 Condition: Serious Clinical Impression: Suicidal intent, Alcohol abuse Neck contusion Qualifiers: Encounter type: initial encounter Qualified Code(s): S10.93XA - Contusion of unspecified part of neck, initial encounter - Discharge Information *PRESCRIPTION DRUG MONITORING PROGRAM REVIEWED*: No *COPY OF PRESCRIPTION DRUG MONITORING REPORT IN PATIENT PERI: No - My Orders Last 24 Hours: My Active Orders 08/07/18 16:04 Peripheral IV Care [RC] Q2HR Sodium Chloride 0.9% [Saline Flush] 10 ml FLUSH ASDIRECTED PRN Peripheral IV Insertion Adult [OM.PC] Routine - Assessment/Plan Last 24 Hours: My Active Orders 08/07/18 16:04 Peripheral IV Care [RC] Q2HR Sodium Chloride 0.9% [Saline Flush] 10 ml FLUSH ASDIRECTED PRN Peripheral IV Insertion Adult [OM.PC] Routine
[2018-08-07] MEDS ORDERED: LORazepam 2 MG/ML SDV IVPUSH ONE (19:06)
[2018-08-07] MEDS ORDERED: LORazepam 2 MG/ML SDV ONE (19:07)
[2018-08-07] MEDS ORDERED: chlordiazePOXIDE 25 MG Cap PO PRN (20:42)
[2018-08-07] MEDS ORDERED: Ondansetron 4 MG/2 ML SDV IV PRN (20:50)
--- NOTE | 2018-08-07 20:59 | PCM.HP ---
H&P History of Present Illness - General Date of Service: 08/07/18 Admit Problem/Dx: Admission Diagnosis/Problem Admission Diagnosis/Problem Suicidal intent - History of Present Illness Initial Comments - Free Text/Narative: 22-year-old female a comes in secondary to suicidal ideation. Patient states that couple of days ago she took a vacuum dry cleaner presser cord and wrapped it around her neck. She got lightheaded and decided that was a good idea. Couple days later, today, she decided to try it with a plastic bag because it was more flexible. Patient was brought in with contusions to her neck and suicidal ideation. She states that she uses meth daily, last use 3 days ago, drinks 3-5 drinks of alcohol a day, and uses marijuana. She did receive Ativan in the emergency room because of anxiety. She denies any shortness breath, difficulty swallowing, change in voice, or neck pain. - Related Data Allergies/Adverse Reactions: Allergies Allergy/AdvReac Type Severity Reaction Status Date / Time No Known Allergies Allergy Verified 06/03/18 21:33 Home Medications: Home Meds . [No Known Home Meds] 08/07/18 [History] Past Medical History - Past Health History Medical/Surgical History: Denies Medical/Surgical History Genitourinary History: Reports: Pyelonephritis, UTI, Recurrent Social & Family History - Family History Family Medical History: Noncontributory - Tobacco Use Smoking Status *Q: Current Every Day Smoker Years of Tobacco use: 3 Packs/Tins Daily: 1 - Caffeine Use Caffeine Use: Reports: Coffee - Alcohol Use Days Per Week of Alcohol Use: 7 Number of Drinks Per Day: 5 Total Drinks Per Week: 35 Date of Last Drink: 08/07/18 - Recreational Drug Use Recreational Drug Use: Yes Drug Use in Last 12 Months: Yes Recreational Drug Type: Reports: Marijuana/Hashish, Methamphetamine Other Recreational Drug Type: "anything I can get" Recreational Drug Use Frequency: Daily Recreational Drug Last Use: 08/04/18 - Living Situation & Occupation Living situation: Reports: Single Occupation: Employed H&P Review of Systems - Review of Systems: Review Of Systems: ROS reveals no pertinent complaints other than HPI. Exam - Exam Exam: See Below - Vital Signs Vital Signs: Last Vital Signs Temp 96.7 F 08/07/18 14:38 Pulse 99 08/07/18 14:38 Resp 16 08/07/18 14:38 BP 127/83 08/07/18 14:38 Pulse Ox 96 08/07/18 14:38 Weight: 161 lb 12.8 oz - Exam Quality Assessment: No: Supplemental Oxygen General: Alert, Oriented, Sedated HEENT: Conjunctiva Clear, Mucosa Moist & [place], Posterior Pharynx Clear Neck: Supple, Trachea Midline, Full Range of Motion, Other (Bruising and a mild abrasion on the left side of her neck 2. It is bluish in color.) Lungs: Clear to Auscultation, Normal Respiratory Effort Cardiovascular: Regular Rate, Regular Rhythm, Normal S1, Normal S2 GI/Abdominal Exam: Normal Bowel Sounds, Soft, Non-Tender, No Organomegaly, No Distention, No Abnormal Bruit Extremities: Normal Inspection, Normal Range of Motion, No Pedal Edema, Normal Capillary Refill Skin: Warm, Dry, Intact Neurological: Cranial Nerves Intact Neuro Extensive - Mental Status: Oriented x3 Neuro Extensive - Motor, Sensory, Reflexes: CN II-XII Intact Psychiatric: Alert, Depressed - Patient Data Lab Results Last 24 hrs: Laboratory Results - last 24 hr 08/07/18 08/07/18 08/07/18 Range/Units 16:20 16:20 16:20 WBC 7.78 (3.98-10.04) K/mm3 RBC 4.69 (3.98-5.22) M/mm3 Hgb 14.3 D (11.2-15.7) gm/L Hct 43.0 (34.1-44.9) % MCV 91.7 (79.4-94.8) fl MCH 30.5 (25.6-32.2) pg MCHC 33.3 (32.2-35.5) g/dl RDW Std Deviation 41.8 (36.4-46.3) fL Plt Count 354 (182-369) K/mm3 MPV 9.5 (9.4-12.3) fl Neutrophils % (Manual) 72 H (40-60) % Band Neutrophils % 0 (0-10) % Lymphocytes % (Manual) 15 L (20-40) % Atypical Lymphs % 0 % Monocytes % (Manual) 5 (2-10) % Eosinophils % (Manual) 5 (0.7-5.8) % Basophils % (Manual) 3 H (0.1-1.2) Platelet Estimate Adequate RBC Morph Comment Normal Puncture Site ABG pH (7.35-7.45) ABG pCO2 (35.0-45.0) mmHg ABG pO2 (80.0-100.0) mmHg ABG HCO3 (22.0-26.0) meq/L ABG O2 Saturation (96.0-97.0) % ABG Base Excess (-2-2.0) Karlos Test O2 Delivery Device FiO2 (21.00-100.00) % Sodium 142 (136-145) mEq/L Potassium 3.3 L (3.5-5.1) mEq/L Chloride 107 (98-107) mEq/L Carbon Dioxide 24 (21-32) mEq/L Anion Gap 14.3 (5-15) BUN 6 L (7-18) mg/dL Creatinine 0.6 (0.55-1.02) mg/dL Est Cr Clr Drug Dosing 140.60 mL/min Estimated GFR (MDRD) > 60 (>60) mL/min BUN/Creatinine Ratio 10.0 L (14-18) Glucose 99 (74-106) mg/dL Calcium 8.8 (8.5-10.1) mg/dL Total Bilirubin 0.3 (0.2-1.0) mg/dL AST 16 (15-37) U/L ALT 26 (14-59) U/L Alkaline Phosphatase 86 (46-116) U/L Total Protein 6.5 (6.4-8.2) g/dl Albumin 3.5 (3.4-5.0) g/dl Globulin 3.0 gm/dL Albumin/Globulin Ratio 1.2 (1-2) TSH 3rd Generation 0.667 (0.358-3.74) uIU/mL HCG, Qual Negative (NEGATIVE) Urine Color (Yellow) Urine Appearance (Clear) Urine pH (5.0-8.0) Ur Specific [place] (1.005-1.030) Urine Protein (Negative) Urine Glucose (UA) (Negative) Urine Ketones (Negative) Urine Occult Blood (Negative) Urine Nitrite (Negative) Urine Bilirubin (Negative) Urine Urobilinogen (0.2-1.0) Ur Leukocyte Esterase (Negative) Urine RBC (0-5) /hpf Urine WBC (0-5) /hpf Ur Squamous Epith Cells (0-5) /hpf Urine Bacteria (FEW) /hpf Urine Mucus (FEW) /hpf Salicylates (2.8-20) mg/dL Urine Opiates Screen (MHBLWG=147) Ur Buprenorphine Scrn (CUTOFF=10) Ur Oxycodone Screen (EUI7VY=422) Urine Methadone Screen (SQVMJA=061) Ur Propoxyphene Screen (DRDUAA=638) Acetaminophen 0 L (10-30) ug/mL Ur Barbiturates Screen (WNDKRR=003) Ur Tricyclics Screen (MOHZAT=180) Ur Phencyclidine Scrn (CUTOFF=25) Ur Amphetamine Screen (JRDDJH=954) U Methamphetamines Scrn (GSRBZR=781) U Benzodiazepines Scrn (FHFLPV=321) U Cocaine Metab Screen (WSXOIF=435) U Marijuana (THC) Screen (CUTOFF=50) Ethyl Alcohol 0.02 (0.00) gm% 08/07/18 08/07/18 08/07/18 Range/Units 16:20 17:24 17:25 WBC (3.98-10.04) K/mm3 RBC (3.98-5.22) M/mm3 Hgb (11.2-15.7) gm/L Hct (34.1-44.9) % MCV (79.4-94.8) fl MCH (25.6-32.2) pg MCHC (32.2-35.5) g/dl RDW Std Deviation (36.4-46.3) fL Plt Count (182-369) K/mm3 MPV (9.4-12.3) fl Neutrophils % (Manual) (40-60) % Band Neutrophils % (0-10) % Lymphocytes % (Manual) (20-40) % Atypical Lymphs % % Monocytes % (Manual) (2-10) % Eosinophils % (Manual) (0.7-5.8) % Basophils % (Manual) (0.1-1.2) Platelet Estimate RBC Morph Comment Puncture Site ABG pH (7.35-7.45) ABG pCO2 (35.0-45.0) mmHg ABG pO2 (80.0-100.0) mmHg ABG HCO3 (22.0-26.0) meq/L ABG O2 Saturation (96.0-97.0) % ABG Base Excess (-2-2.0) Karlos Test O2 Delivery Device FiO2 (21.00-100.00) % Sodium (136-145) mEq/L Potassium (3.5-5.1) mEq/L Chloride (98-107) mEq/L Carbon Dioxide (21-32) mEq/L Anion Gap (5-15) BUN (7-18) mg/dL Creatinine (0.55-1.02) mg/dL Est Cr Clr Drug Dosing mL/min Estimated GFR (MDRD) (>60) mL/min BUN/Creatinine Ratio (14-18) Glucose (74-106) mg/dL Calcium (8.5-10.1) mg/dL Total Bilirubin (0.2-1.0) mg/dL AST (15-37) U/L ALT (14-59) U/L Alkaline Phosphatase (46-116) U/L Total Protein (6.4-8.2) g/dl Albumin (3.4-5.0) g/dl Globulin gm/dL Albumin/Globulin Ratio (1-2) TSH 3rd Generation (0.358-3.74) uIU/mL HCG, Qual (NEGATIVE) Urine Color Yellow (Yellow) Urine Appearance Clear (Clear) Urine pH 7.0 (5.0-8.0) Ur Specific [place] 1.020 (1.005-1.030) Urine Protein Negative (Negative) Urine Glucose (UA) Negative (Negative) Urine Ketones Negative (Negative) Urine Occult Blood Negative (Negative) Urine Nitrite Negative (Negative) Urine Bilirubin Negative (Negative) Urine Urobilinogen 0.2 (0.2-1.0) Ur Leukocyte Esterase Negative (Negative) Urine RBC Not seen (0-5) /hpf Urine WBC 0-5 (0-5) /hpf Ur Squamous Epith Cells 5-10 H (0-5) /hpf Urine Bacteria Few (FEW) /hpf Urine Mucus Few (FEW) /hpf Salicylates 0.9 L (2.8-20) mg/dL Urine Opiates Screen Negative (UZGBHB=994) Ur Buprenorphine Scrn Negative (CUTOFF=10) Ur Oxycodone Screen Negative (JWX9BW=231) Urine Methadone Screen Negative (PFKRJS=298) Ur Propoxyphene Screen Negative (MYUWUK=293) Acetaminophen (10-30) ug/mL Ur Barbiturates Screen Negative (ETYBIS=059) Ur Tricyclics Screen Negative (ONBRUN=883) Ur Phencyclidine Scrn Negative (CUTOFF=25) Ur Amphetamine Screen Negative (UGQJQX=491) U Methamphetamines Scrn Presumptive positive H (LCENHE=204) U Benzodiazepines Scrn Negative (EJTUQD=411) U Cocaine Metab Screen Negative (LLAWZI=869) U Marijuana (THC) Screen Presumptive positive H (CUTOFF=50) Ethyl Alcohol (0.00) gm% 08/07/18 Range/Units 18:23 WBC (3.98-10.04) K/mm3 RBC (3.98-5.22) M/mm3 Hgb (11.2-15.7) gm/L Hct (34.1-44.9) % MCV (79.4-94.8) fl MCH (25.6-32.2) pg MCHC (32.2-35.5) g/dl RDW Std Deviation (36.4-46.3) fL Plt Count (182-369) K/mm3 MPV (9.4-12.3) fl Neutrophils % (Manual) (40-60) % Band Neutrophils % (0-10) % Lymphocytes % (Manual) (20-40) % Atypical Lymphs % % Monocytes % (Manual) (2-10) % Eosinophils % (Manual) (0.7-5.8) % Basophils % (Manual) (0.1-1.2) Platelet Estimate RBC Morph Comment Puncture Site Rt radial ABG pH 7.41 (7.35-7.45) ABG pCO2 38.8 (35.0-45.0) mmHg ABG pO2 91.0 (80.0-100.0) mmHg ABG HCO3 23.9 (22.0-26.0) meq/L ABG O2 Saturation 97.9 H (96.0-97.0) % ABG Base Excess -0.1 (-2-2.0) Karlos Test Positive O2 Delivery Device Room air FiO2 21.00 (21.00-100.00) % Sodium (136-145) mEq/L Potassium (3.5-5.1) mEq/L Chloride (98-107) mEq/L Carbon Dioxide (21-32) mEq/L Anion Gap (5-15) BUN (7-18) mg/dL Creatinine (0.55-1.02) mg/dL Est Cr Clr Drug Dosing mL/min Estimated GFR (MDRD) (>60) mL/min BUN/Creatinine Ratio (14-18) Glucose (74-106) mg/dL Calcium (8.5-10.1) mg/dL Total Bilirubin (0.2-1.0) mg/dL AST (15-37) U/L ALT (14-59) U/L Alkaline Phosphatase (46-116) U/L Total Protein (6.4-8.2) g/dl Albumin (3.4-5.0) g/dl Globulin gm/dL Albumin/Globulin Ratio (1-2) TSH 3rd Generation (0.358-3.74) uIU/mL HCG, Qual (NEGATIVE) Urine Color (Yellow) Urine Appearance (Clear) Urine pH (5.0-8.0) Ur Specific [place] (1.005-1.030) Urine Protein (Negative) Urine Glucose (UA) (Negative) Urine Ketones (Negative) Urine Occult Blood (Negative) Urine Nitrite (Negative) Urine Bilirubin (Negative) Urine Urobilinogen (0.2-1.0) Ur Leukocyte Esterase (Negative) Urine RBC (0-5) /hpf Urine WBC (0-5) /hpf Ur Squamous Epith Cells (0-5) /hpf Urine Bacteria (FEW) /hpf Urine Mucus (FEW) /hpf Salicylates (2.8-20) mg/dL Urine Opiates Screen (LDPGXP=868) Ur Buprenorphine Scrn (CUTOFF=10) Ur Oxycodone Screen (KHZ1VS=923) Urine Methadone Screen (ZHQFJI=039) Ur Propoxyphene Screen (MXRFZJ=874) Acetaminophen (10-30) ug/mL Ur Barbiturates Screen (KTCCMH=474) Ur Tricyclics Screen (DVNGFH=960) Ur Phencyclidine Scrn (CUTOFF=25) Ur Amphetamine Screen (XERRHU=572) U Methamphetamines Scrn (MLMPOM=074) U Benzodiazepines Scrn (IEZTSV=971) U Cocaine Metab Screen (MNLCAZ=835) U Marijuana (THC) Screen (CUTOFF=50) Ethyl Alcohol (0.00) gm% Result Diagrams: 08/07/18 16:20 08/07/18 16:20 - Problem List (1) Suicidal intent SNOMED Code(s): 834755046, 235551284 ICD Code: R45.851 - SUICIDAL IDEATIONS Status: Acute Current Visit: Yes (2) Polysubstance (excluding opioids) dependence SNOMED Code(s): 62168250 ICD Code: F19.20 - OTHER PSYCHOACTIVE SUBSTANCE DEPENDENCE, UNCOMPLICATED Status: Acute Current Visit: Yes (3) Neck contusion SNOMED Code(s): 7432142 ICD Code: S10.93XA - CONTUSION OF UNSPECIFIED PART OF NECK, INITIAL ENCOUNTER Status: Acute Current Visit: Yes Problem List Initiated/Reviewed/Updated: Yes Orders Last 24hrs: Active Orders 24 hr Category Date Time Status Admission Status [Patient Status] [ADT] Routine ADT 08/07/18 18:36 Active Antiembolic Devices [RC] PER UNIT ROUTINE Care 08/07/18 20:53 Ordered Oxygen Therapy [RC] PRN Care 08/07/18 20:51 Ordered Peripheral IV Care [RC] Q2HR Care 08/07/18 16:04 Active Up ad Yessica [RC] ASDIRECTED Care 08/07/18 20:50 Ordered VTE/DVT Education [RC] PER UNIT ROUTINE Care 08/07/18 20:51 Ordered Vital Signs [RC] Q4H Care 08/07/18 20:51 Ordered Consult to Case Management/Usability Specialist [CONS] Cons 08/07/18 20:50 Ordered Routine Regular Diet [DIET] Diet 08/07/18 Dinner Ordered CBC WITH AUTO DIFF [HEME] AM Lab 08/08/18 05:11 Ordered COMPREHENSIVE METABOLIC PN,CMP [CHEM] AM Lab 08/08/18 05:11 Ordered MAGNESIUM [CHEM] AM Lab 08/08/18 05:11 Ordered PHOSPHORUS [CHEM] AM Lab 08/08/18 05:11 Ordered Nicotine [Habitrol] Med 08/07/18 21:00 Ordered 21 mg TRDERM 2100 Ondansetron [Zofran] Med 08/07/18 20:50 Ordered 4 mg IV Q4H PRN Sodium Chloride 0.9% [Saline Flush] Med 08/07/18 16:04 Active 10 ml FLUSH ASDIRECTED PRN Sodium Chloride 0.9% [Saline Flush] Med 08/07/18 20:50 Ordered 10 ml FLUSH ASDIRECTED PRN chlordiazePOXIDE [Librium] Med 08/07/18 20:42 Ordered 25 mg PO Q1H PRN Antiembolic Hose [OM.PC] Per Unit Routine Oth 08/07/18 20:52 Ordered Peripheral IV Insertion Adult [OM.PC] Routine Oth 08/07/18 16:04 Ordered Saline Lock Insert [OM.PC] Routine Oth 08/07/18 20:50 Ordered Resuscitation Status Routine Resus Stat 08/07/18 20:50 Ordered Medication Orders Chlordiazepoxide HCl (Librium) 25 mg PO Q1H PRN PRN Reason: CIWAA >8 Nicotine (Habitrol) 21 mg TRDERM 2100 ANNABEL Sodium Chloride (Saline Flush) 10 ml FLUSH ASDIRECTED PRN PRN Reason: Keep Vein Open Last Admin: 08/07/18 16:25 Dose: 10 ml Assessment/Plan Comment:: Patient had 2 suicidal attempts. She voices continued suicidal ideation, depression, and anxiety. Patient has polysubstance abuse. We will admit her to observation and for placement. Patient has external bruising of the neck with no signs of internal derangement. Patient's airway is stable and intact and I doubt any need to worry about compromise.
[2018-08-07] MEDS ORDERED: Nicotine 21 MG/24 Hr Patch TRDERM SCH (21:00)
[2018-08-07] MEDS: Potassium Chloride 20 MEQ Tab.ER PO SCH (22:44)
--- NOTE | 2018-08-08 06:23 | PCM.PN ---
- General Info Date of Service: 08/08/18 Admission Dx/Problem (Free Text): Admission Diagnosis/Problem Admission Diagnosis/Problem Suicidal intent - Patient Data Vitals - Most Recent: Last Vital Signs Temp 97.8 F 08/08/18 04:00 Pulse 99 08/07/18 14:38 Resp 16 08/08/18 04:00 BP 117/82 08/08/18 04:00 Pulse Ox 99 08/08/18 04:00 Weight - Most Recent: 162 lb I&O - Last 24 Hours: Intake & Output 08/07/18 08/07/18 08/08/18 14:59 22:59 06:59 Intake Total 360 Balance 360 Lab Results Last 24 Hours: Laboratory Results - last 24 hr 08/07/18 08/07/18 08/07/18 Range/Units 16:20 16:20 16:20 WBC 7.78 (3.98-10.04) K/mm3 RBC 4.69 (3.98-5.22) M/mm3 Hgb 14.3 D (11.2-15.7) gm/L Hct 43.0 (34.1-44.9) % MCV 91.7 (79.4-94.8) fl MCH 30.5 (25.6-32.2) pg MCHC 33.3 (32.2-35.5) g/dl RDW Std Deviation 41.8 (36.4-46.3) fL Plt Count 354 (182-369) K/mm3 MPV 9.5 (9.4-12.3) fl Neut % (Auto) (34.0-71.1) % Lymph % (Auto) (19.3-51.7) % [place] % (Auto) (4.7-12.5) % Eos % (Auto) (0.7-5.8) Baso % (Auto) (0.1-1.2) % Neut # (Auto) (1.56-6.13) K/mm3 Lymph # (Auto) (1.18-3.74) K/mm3 [place] # (Auto) (0.24-0.36) K/mm3 Eos # (Auto) (0.04-0.36) K/mm3 Baso # (Auto) (0.01-0.08) K/mm3 Neutrophils % (Manual) 72 H (40-60) % Band Neutrophils % 0 (0-10) % Lymphocytes % (Manual) 15 L (20-40) % Atypical Lymphs % 0 % Monocytes % (Manual) 5 (2-10) % Eosinophils % (Manual) 5 (0.7-5.8) % Basophils % (Manual) 3 H (0.1-1.2) Platelet Estimate Adequate RBC Morph Comment Normal Puncture Site ABG pH (7.35-7.45) ABG pCO2 (35.0-45.0) mmHg ABG pO2 (80.0-100.0) mmHg ABG HCO3 (22.0-26.0) meq/L ABG O2 Saturation (96.0-97.0) % ABG Base Excess (-2-2.0) Karlos Test O2 Delivery Device FiO2 (21.00-100.00) % Sodium 142 (136-145) mEq/L Potassium 3.3 L (3.5-5.1) mEq/L Chloride 107 (98-107) mEq/L Carbon Dioxide 24 (21-32) mEq/L Anion Gap 14.3 (5-15) BUN 6 L (7-18) mg/dL Creatinine 0.6 (0.55-1.02) mg/dL Est Cr Clr Drug Dosing 140.60 mL/min Estimated GFR (MDRD) > 60 (>60) mL/min BUN/Creatinine Ratio 10.0 L (14-18) Glucose 99 (74-106) mg/dL Calcium 8.8 (8.5-10.1) mg/dL Total Bilirubin 0.3 (0.2-1.0) mg/dL AST 16 (15-37) U/L ALT 26 (14-59) U/L Alkaline Phosphatase 86 (46-116) U/L Total Protein 6.5 (6.4-8.2) g/dl Albumin 3.5 (3.4-5.0) g/dl Globulin 3.0 gm/dL Albumin/Globulin Ratio 1.2 (1-2) TSH 3rd Generation 0.667 (0.358-3.74) uIU/mL HCG, Qual Negative (NEGATIVE) Urine Color (Yellow) Urine Appearance (Clear) Urine pH (5.0-8.0) Ur Specific [place] (1.005-1.030) Urine Protein (Negative) Urine Glucose (UA) (Negative) Urine Ketones (Negative) Urine Occult Blood (Negative) Urine Nitrite (Negative) Urine Bilirubin (Negative) Urine Urobilinogen (0.2-1.0) Ur Leukocyte Esterase (Negative) Urine RBC (0-5) /hpf Urine WBC (0-5) /hpf Ur Squamous Epith Cells (0-5) /hpf Urine Bacteria (FEW) /hpf Urine Mucus (FEW) /hpf Salicylates (2.8-20) mg/dL Urine Opiates Screen (VGNDPQ=838) Ur Buprenorphine Scrn (CUTOFF=10) Ur Oxycodone Screen (WTB6OA=095) Urine Methadone Screen (UHNWXO=289) Ur Propoxyphene Screen (TCDDMI=210) Acetaminophen 0 L (10-30) ug/mL Ur Barbiturates Screen (MSOZWL=857) Ur Tricyclics Screen (PKGYWX=121) Ur Phencyclidine Scrn (CUTOFF=25) Ur Amphetamine Screen (FMSAKW=559) U Methamphetamines Scrn (XUJQMV=414) U Benzodiazepines Scrn (FZHQSN=028) U Cocaine Metab Screen (UFHZCJ=468) U Marijuana (THC) Screen (CUTOFF=50) Ethyl Alcohol 0.02 (0.00) gm% 08/07/18 08/07/18 08/07/18 Range/Units 16:20 17:24 17:25 WBC (3.98-10.04) K/mm3 RBC (3.98-5.22) M/mm3 Hgb (11.2-15.7) gm/L Hct (34.1-44.9) % MCV (79.4-94.8) fl MCH (25.6-32.2) pg MCHC (32.2-35.5) g/dl RDW Std Deviation (36.4-46.3) fL Plt Count (182-369) K/mm3 MPV (9.4-12.3) fl Neut % (Auto) (34.0-71.1) % Lymph % (Auto) (19.3-51.7) % [place] % (Auto) (4.7-12.5) % Eos % (Auto) (0.7-5.8) Baso % (Auto) (0.1-1.2) % Neut # (Auto) (1.56-6.13) K/mm3 Lymph # (Auto) (1.18-3.74) K/mm3 [place] # (Auto) (0.24-0.36) K/mm3 Eos # (Auto) (0.04-0.36) K/mm3 Baso # (Auto) (0.01-0.08) K/mm3 Neutrophils % (Manual) (40-60) % Band Neutrophils % (0-10) % Lymphocytes % (Manual) (20-40) % Atypical Lymphs % % Monocytes % (Manual) (2-10) % Eosinophils % (Manual) (0.7-5.8) % Basophils % (Manual) (0.1-1.2) Platelet Estimate RBC Morph Comment Puncture Site ABG pH (7.35-7.45) ABG pCO2 (35.0-45.0) mmHg ABG pO2 (80.0-100.0) mmHg ABG HCO3 (22.0-26.0) meq/L ABG O2 Saturation (96.0-97.0) % ABG Base Excess (-2-2.0) Karlos Test O2 Delivery Device FiO2 (21.00-100.00) % Sodium (136-145) mEq/L Potassium (3.5-5.1) mEq/L Chloride (98-107) mEq/L Carbon Dioxide (21-32) mEq/L Anion Gap (5-15) BUN (7-18) mg/dL Creatinine (0.55-1.02) mg/dL Est Cr Clr Drug Dosing mL/min Estimated GFR (MDRD) (>60) mL/min BUN/Creatinine Ratio (14-18) Glucose (74-106) mg/dL Calcium (8.5-10.1) mg/dL Total Bilirubin (0.2-1.0) mg/dL AST (15-37) U/L ALT (14-59) U/L Alkaline Phosphatase (46-116) U/L Total Protein (6.4-8.2) g/dl Albumin (3.4-5.0) g/dl Globulin gm/dL Albumin/Globulin Ratio (1-2) TSH 3rd Generation (0.358-3.74) uIU/mL HCG, Qual (NEGATIVE) Urine Color Yellow (Yellow) Urine Appearance Clear (Clear) Urine pH 7.0 (5.0-8.0) Ur Specific [place] 1.020 (1.005-1.030) Urine Protein Negative (Negative) Urine Glucose (UA) Negative (Negative) Urine Ketones Negative (Negative) Urine Occult Blood Negative (Negative) Urine Nitrite Negative (Negative) Urine Bilirubin Negative (Negative) Urine Urobilinogen 0.2 (0.2-1.0) Ur Leukocyte Esterase Negative (Negative) Urine RBC Not seen (0-5) /hpf Urine WBC 0-5 (0-5) /hpf Ur Squamous Epith Cells 5-10 H (0-5) /hpf Urine Bacteria Few (FEW) /hpf Urine Mucus Few (FEW) /hpf Salicylates 0.9 L (2.8-20) mg/dL Urine Opiates Screen Negative (ABULYM=443) Ur Buprenorphine Scrn Negative (CUTOFF=10) Ur Oxycodone Screen Negative (GYS1CV=118) Urine Methadone Screen Negative (WZITFX=878) Ur Propoxyphene Screen Negative (WYWXNA=212) Acetaminophen (10-30) ug/mL Ur Barbiturates Screen Negative (SWKSHD=671) Ur Tricyclics Screen Negative (TUOGYN=095) Ur Phencyclidine Scrn Negative (CUTOFF=25) Ur Amphetamine Screen Negative (AATKIH=197) U Methamphetamines Scrn Presumptive positive H (HHJHFN=862) U Benzodiazepines Scrn Negative (VHLLLU=629) U Cocaine Metab Screen Negative (NICLDD=313) U Marijuana (THC) Screen Presumptive positive H (CUTOFF=50) Ethyl Alcohol (0.00) gm% 08/07/18 08/08/18 Range/Units 18:23 04:40 WBC 7.90 (3.98-10.04) K/mm3 RBC 4.78 (3.98-5.22) M/mm3 Hgb 14.5 (11.2-15.7) gm/L Hct 44.1 (34.1-44.9) % MCV 92.3 (79.4-94.8) fl MCH 30.3 (25.6-32.2) pg MCHC 32.9 (32.2-35.5) g/dl RDW Std Deviation 42.3 (36.4-46.3) fL Plt Count 350 (182-369) K/mm3 MPV 9.9 (9.4-12.3) fl Neut % (Auto) 53.7 (34.0-71.1) % Lymph % (Auto) 30.6 (19.3-51.7) % [place] % (Auto) 8.2 (4.7-12.5) % Eos % (Auto) 6.1 H (0.7-5.8) Baso % (Auto) 1.0 (0.1-1.2) % Neut # (Auto) 4.24 (1.56-6.13) K/mm3 Lymph # (Auto) 2.42 (1.18-3.74) K/mm3 [place] # (Auto) 0.65 H (0.24-0.36) K/mm3 Eos # (Auto) 0.48 H (0.04-0.36) K/mm3 Baso # (Auto) 0.08 (0.01-0.08) K/mm3 Neutrophils % (Manual) (40-60) % Band Neutrophils % (0-10) % Lymphocytes % (Manual) (20-40) % Atypical Lymphs % % Monocytes % (Manual) (2-10) % Eosinophils % (Manual) (0.7-5.8) % Basophils % (Manual) (0.1-1.2) Platelet Estimate RBC Morph Comment Puncture Site Rt radial ABG pH 7.41 (7.35-7.45) ABG pCO2 38.8 (35.0-45.0) mmHg ABG pO2 91.0 (80.0-100.0) mmHg ABG HCO3 23.9 (22.0-26.0) meq/L ABG O2 Saturation 97.9 H (96.0-97.0) % ABG Base Excess -0.1 (-2-2.0) Karlos Test Positive O2 Delivery Device Room air FiO2 21.00 (21.00-100.00) % Sodium (136-145) mEq/L Potassium (3.5-5.1) mEq/L Chloride (98-107) mEq/L Carbon Dioxide (21-32) mEq/L Anion Gap (5-15) BUN (7-18) mg/dL Creatinine (0.55-1.02) mg/dL Est Cr Clr Drug Dosing mL/min Estimated GFR (MDRD) (>60) mL/min BUN/Creatinine Ratio (14-18) Glucose (74-106) mg/dL Calcium (8.5-10.1) mg/dL Total Bilirubin (0.2-1.0) mg/dL AST (15-37) U/L ALT (14-59) U/L Alkaline Phosphatase (46-116) U/L Total Protein (6.4-8.2) g/dl Albumin (3.4-5.0) g/dl Globulin gm/dL Albumin/Globulin Ratio (1-2) TSH 3rd Generation (0.358-3.74) uIU/mL HCG, Qual (NEGATIVE) Urine Color (Yellow) Urine Appearance (Clear) Urine pH (5.0-8.0) Ur Specific [place] (1.005-1.030) Urine Protein (Negative) Urine Glucose (UA) (Negative) Urine Ketones (Negative) Urine Occult Blood (Negative) Urine Nitrite (Negative) Urine Bilirubin (Negative) Urine Urobilinogen (0.2-1.0) Ur Leukocyte Esterase (Negative) Urine RBC (0-5) /hpf Urine WBC (0-5) /hpf Ur Squamous Epith Cells (0-5) /hpf Urine Bacteria (FEW) /hpf Urine Mucus (FEW) /hpf Salicylates (2.8-20) mg/dL Urine Opiates Screen (BSNVYN=670) Ur Buprenorphine Scrn (CUTOFF=10) Ur Oxycodone Screen (PGT8QR=152) Urine Methadone Screen (LFAMXF=948) Ur Propoxyphene Screen (QDVUIX=292) Acetaminophen (10-30) ug/mL Ur Barbiturates Screen (JLLMCR=711) Ur Tricyclics Screen (LOJKMY=359) Ur Phencyclidine Scrn (CUTOFF=25) Ur Amphetamine Screen (UCRLTT=704) U Methamphetamines Scrn (GJQQQN=256) U Benzodiazepines Scrn (MOFLII=562) U Cocaine Metab Screen (QTWVZO=173) U Marijuana (THC) Screen (CUTOFF=50) Ethyl Alcohol (0.00) gm% Med Orders - Current: Current Medications Chlordiazepoxide HCl (Librium) 25 mg PO Q1H PRN PRN Reason: CIWAA >8 Miscellaneous Information (Remove Patch) 1 ea TRDERM 2100 ANNABEL Nicotine (Habitrol) 21 mg TRDERM 2100 ANNABEL Last Admin: 08/07/18 20:59 Dose: 21 mg Ondansetron HCl (Zofran) 4 mg IV Q4H PRN PRN Reason: Nausea/Vomiting Potassium Chloride (Klor-Con M20) 20 meq PO BID ANNABEL Stop: 08/08/18 09:01 Last Admin: 08/07/18 22:44 Dose: 20 meq Sodium Chloride (Saline Flush) 10 ml FLUSH ASDIRECTED PRN PRN Reason: Keep Vein Open Last Admin: 08/07/18 16:25 Dose: 10 ml Discontinued Medications Sodium Chloride (Normal Saline) 1,000 mls @ 999 mls/hr IV ONETIME ONE Stop: 08/07/18 17:04 Last Admin: 08/07/18 16:25 Dose: 999 mls/hr Lorazepam (Ativan) 1 mg IVPUSH ONETIME ONE Stop: 08/07/18 19:07 Last Admin: 08/07/18 19:10 Dose: 1 mg Lorazepam (Ativan) Confirm Administered Dose 2 mg .ROUTE .STK-MED ONE Stop: 08/07/18 19:08 Last Admin: 08/07/18 19:28 Dose: Not Given Nicotine (Habitrol) 21 mg TRDERM DAILY [facility] Sodium Chloride (Saline Flush) 10 ml FLUSH ASDIRECTED PRN PRN Reason: Keep Vein Open - Plan Plan:: Patient had 2 suicidal attempts. She voices continued suicidal ideation, depression, and anxiety. Patient has polysubstance abuse. We will admit her to observation and for placement. Patient has external bruising of the neck with no signs of internal derangement. Patient's airway is stable and intact and I doubt any need to worry about compromise.
[2018-08-08] MEDS: Potassium Chloride 20 MEQ Tab.ER PO SCH (08:04)
[2018-08-08] MEDS ORDERED: Nicotine 21 MG/24 Hr Patch TRDERM SCH (09:00)
--- NOTE | 2018-08-08 11:03 | PCM.DCSUM1 ---
Discharge Summary - Hospital Course HPI Initial Comments: 22-year-old female a comes in secondary to suicidal ideation. Patient states that couple of days ago she took a vacuum suede cleaner cord and wrapped it around her neck. She got lightheaded and decided that was a good idea. Couple days later, today, she decided to try it with a plastic bag because it was more flexible. Patient was brought in with contusions to her neck and suicidal ideation. She states that she uses meth daily, last use 3 days ago, drinks 3-5 drinks of alcohol a day, and uses marijuana. She did receive Ativan in the emergency room because of anxiety. She denies any shortness breath, difficulty swallowing, change in voice, or neck pain. Diagnosis: Stroke: No - Discharge Data Discharge Date: 08/08/18 (Admit date: 08/07/18) Discharge Disposition: DC/Tfer to Psych Hosp/Unit [facility] Condition: Stable - Discharge Diagnosis/Problem(s) (1) Unspecified mood [affective] disorder SNOMED Code(s): 52641456 ICD Code: F39 - UNSPECIFIED MOOD [AFFECTIVE] DISORDER Status: Acute Priority: High Current Visit: Yes (2) Neck contusion SNOMED Code(s): 4709707 ICD Code: S10.93XA - CONTUSION OF UNSPECIFIED PART OF NECK, INITIAL ENCOUNTER Status: Acute Priority: Medium Current Visit: Yes Qualifiers: Encounter type: initial encounter Qualified Code(s): S10.93XA - Contusion of unspecified part of neck, initial encounter (3) Polysubstance (excluding opioids) dependence SNOMED Code(s): 03190289 ICD Code: F19.20 - OTHER PSYCHOACTIVE SUBSTANCE DEPENDENCE, UNCOMPLICATED Status: Acute Priority: High Current Visit: Yes (4) Suicidal intent SNOMED Code(s): 360384369, 665584963 ICD Code: R45.851 - SUICIDAL IDEATIONS Status: Acute Priority: High Current Visit: Yes - Patient Summary/Data Consults: Consultations 08/07/18 20:50 Consult to Case Management/[employer]ear[employer] Hostess [CONS] Routine Labs Pending at D/C: None Hospital Course: Melvi Holden is a 22-year-old female who presented to our ED the afternoon of 08/07/18 after several suicide attempts. She reported to try to strangle herself with a vacuum suede cleaner cord and a trash bag. It is reported she lost consciousness. Urine drug screen was obtained and was found positive for methamphetamine and marijuana. Ethyl alcohol was also obtained and was 0.02. Potassium was low and was supplemented. she was admitted to the ICU. She was then downgraded to MedSurg status. Morning labs have remained stable along with vital signs. CIWAs have remained 0. she is very open about her drug and alcohol use and frequent calls herself a "meth addict". She also reportedly tells nursing multiple times that she will use "anything she can get." I asked her about alcohol use and she does report that she drinks frequently but she will not give me specifics. She is also a current smoker and has been receiving nicotine patches. She remains suicidal throughout her stay. She had reportedly checked herself into a crisis bed at [facility] about 3 weeks ago but reportedly left after 30 minutes. She is reportedly not seen a psychiatrist in the last 5 years although she does have a prior diagnosis of borderline personality disorder and anxiety disorder. She's not on any current medications. Per family she currently lives in a apartment with her cousin who also reportedly abuses illicit substances and she has been unable to hold a job for several years. Medical workup was grossly negative. She does agree that she would like to stop her methamphetamine and marijuana use. When asked she does agree to possible need for transfer to psychiatric facility. She also reports that she would like help with her suicidal urges. She has no trouble swallowing or breathing. She does have some bruising bilaterally noted around her neck. She denies any throat pain. UA and TSH were obtained and were normal. Potassium has returned to normal range. Dr. Gongora, psychiatry, with [facility] contacted and report given. He agrees to accept the patient. We will place a hold on her and arrange senior linux administrator Department transfer. - Patient Instructions Diet: Usual Diet as Tolerated - Discharge Plan *PRESCRIPTION DRUG MONITORING PROGRAM REVIEWED*: No *COPY OF PRESCRIPTION DRUG MONITORING REPORT IN PATIENT PERI: No Home Medications: Home Meds . [No Known Home Meds] 08/07/18 [History] Oxygen Therapy Mode: Room Air Patient Handouts: Steps to Quit Smoking Forms: ED Department Discharge Referrals: PCP,None [Primary Care Provider] - - Discharge Summary/Plan Comment DC Time >30 min.: Yes (60 minutes ) - General Info Date of Service: 08/08/18 Admission Dx/Problem (Free Text: Admission Diagnosis/Problem Admission Diagnosis/Problem Suicidal intent Functional Status: Reports: Pain Controlled, Tolerating Diet, Ambulating, Urinating. Denies: New Symptoms - Review of Systems General: Reports: Fatigue. Denies: Fever, Chills HEENT: Reports: No Symptoms. Denies: Sore Throat Pulmonary: Reports: No Symptoms. Denies: Shortness of Breath, Cough, Sputum, Wheezing Cardiovascular: Reports: No Symptoms. Denies: Chest Pain, Palpitations Gastrointestinal: Reports: No Symptoms. Denies: Abdominal Pain, Constipation, Diarrhea, Difficulty Swallowing, Nausea, Vomiting Genitourinary: Reports: No Symptoms. Denies: Pain Musculoskeletal: Reports: No Symptoms Skin: Reports: No Symptoms. Denies: Cyanosis Neurological: Reports: No Symptoms. Denies: Confusion Psychiatric: Reports: Anxiety, Suicidal Ideation. Denies: Confusion, Mood Lability, Agitation, Hallucinations, Homicidal Ideation - Patient Data Vitals - Most Recent: Last Vital Signs Temp 98.5 F 08/08/18 07:52 Pulse 76 08/08/18 07:52 Resp 18 08/08/18 07:52 BP 98/72 08/08/18 07:52 Pulse Ox 97 08/08/18 07:52 Weight - Most Recent: 162 lb I&O - Last 24 hours: Intake & Output 08/07/18 08/08/18 08/08/18 22:59 06:59 14:59 Intake Total 360 360 Balance 360 360 Lab Results - Last 24 hrs: Laboratory Results - last 24 hr 08/07/18 08/07/18 08/07/18 Range/Units 16:20 16:20 16:20 WBC 7.78 (3.98-10.04) K/mm3 RBC 4.69 (3.98-5.22) M/mm3 Hgb 14.3 D (11.2-15.7) gm/L Hct 43.0 (34.1-44.9) % MCV 91.7 (79.4-94.8) fl MCH 30.5 (25.6-32.2) pg MCHC 33.3 (32.2-35.5) g/dl RDW Std Deviation 41.8 (36.4-46.3) fL Plt Count 354 (182-369) K/mm3 MPV 9.5 (9.4-12.3) fl Neut % (Auto) (34.0-71.1) % Lymph % (Auto) (19.3-51.7) % Dougherty % (Auto) (4.7-12.5) % Eos % (Auto) (0.7-5.8) Baso % (Auto) (0.1-1.2) % Neut # (Auto) (1.56-6.13) K/mm3 Lymph # (Auto) (1.18-3.74) K/mm3 Dougherty # (Auto) (0.24-0.36) K/mm3 Eos # (Auto) (0.04-0.36) K/mm3 Baso # (Auto) (0.01-0.08) K/mm3 Neutrophils % (Manual) 72 H (40-60) % Band Neutrophils % 0 (0-10) % Lymphocytes % (Manual) 15 L (20-40) % Atypical Lymphs % 0 % Monocytes % (Manual) 5 (2-10) % Eosinophils % (Manual) 5 (0.7-5.8) % Basophils % (Manual) 3 H (0.1-1.2) Platelet Estimate Adequate RBC Morph Comment Normal Puncture Site ABG pH (7.35-7.45) ABG pCO2 (35.0-45.0) mmHg ABG pO2 (80.0-100.0) mmHg ABG HCO3 (22.0-26.0) meq/L ABG O2 Saturation (96.0-97.0) % ABG Base Excess (-2-2.0) Karlos Test O2 Delivery Device FiO2 (21.00-100.00) % Sodium 142 (136-145) mEq/L Potassium 3.3 L (3.5-5.1) mEq/L Chloride 107 (98-107) mEq/L Carbon Dioxide 24 (21-32) mEq/L Anion Gap 14.3 (5-15) BUN 6 L (7-18) mg/dL Creatinine 0.6 (0.55-1.02) mg/dL Est Cr Clr Drug Dosing 140.60 mL/min Estimated GFR (MDRD) > 60 (>60) mL/min BUN/Creatinine Ratio 10.0 L (14-18) Glucose 99 (74-106) mg/dL Calcium 8.8 (8.5-10.1) mg/dL Phosphorus (2.6-4.7) mg/dL Magnesium (1.8-2.4) mg/dl Total Bilirubin 0.3 (0.2-1.0) mg/dL AST 16 (15-37) U/L ALT 26 (14-59) U/L Alkaline Phosphatase 86 (46-116) U/L Total Protein 6.5 (6.4-8.2) g/dl Albumin 3.5 (3.4-5.0) g/dl Globulin 3.0 gm/dL Albumin/Globulin Ratio 1.2 (1-2) TSH 3rd Generation 0.667 (0.358-3.74) uIU/mL HCG, Qual Negative (NEGATIVE) Urine Color (Yellow) Urine Appearance (Clear) Urine pH (5.0-8.0) Ur Specific [place] (1.005-1.030) Urine Protein (Negative) Urine Glucose (UA) (Negative) Urine Ketones (Negative) Urine Occult Blood (Negative) Urine Nitrite (Negative) Urine Bilirubin (Negative) Urine Urobilinogen (0.2-1.0) Ur Leukocyte Esterase (Negative) Urine RBC (0-5) /hpf Urine WBC (0-5) /hpf Ur Squamous Epith Cells (0-5) /hpf Urine Bacteria (FEW) /hpf Urine Mucus (FEW) /hpf Salicylates (2.8-20) mg/dL Urine Opiates Screen (CWZSCK=835) Ur Buprenorphine Scrn (CUTOFF=10) Ur Oxycodone Screen (EBO4PP=904) Urine Methadone Screen (LLFNDJ=547) Ur Propoxyphene Screen (TEHVOT=432) Acetaminophen 0 L (10-30) ug/mL Ur Barbiturates Screen (PEDXDB=495) Ur Tricyclics Screen (LBSVSQ=707) Ur Phencyclidine Scrn (CUTOFF=25) Ur Amphetamine Screen (NLFCAI=982) U Methamphetamines Scrn (XHDOWD=939) U Benzodiazepines Scrn (NVHFWW=046) U Cocaine Metab Screen (GMYXTJ=024) U Marijuana (THC) Screen (CUTOFF=50) Ethyl Alcohol 0.02 (0.00) gm% 08/07/18 08/07/18 08/07/18 Range/Units 16:20 17:24 17:25 WBC (3.98-10.04) K/mm3 RBC (3.98-5.22) M/mm3 Hgb (11.2-15.7) gm/L Hct (34.1-44.9) % MCV (79.4-94.8) fl MCH (25.6-32.2) pg MCHC (32.2-35.5) g/dl RDW Std Deviation (36.4-46.3) fL Plt Count (182-369) K/mm3 MPV (9.4-12.3) fl Neut % (Auto) (34.0-71.1) % Lymph % (Auto) (19.3-51.7) % Dougherty % (Auto) (4.7-12.5) % Eos % (Auto) (0.7-5.8) Baso % (Auto) (0.1-1.2) % Neut # (Auto) (1.56-6.13) K/mm3 Lymph # (Auto) (1.18-3.74) K/mm3 Dougherty # (Auto) (0.24-0.36) K/mm3 Eos # (Auto) (0.04-0.36) K/mm3 Baso # (Auto) (0.01-0.08) K/mm3 Neutrophils % (Manual) (40-60) % Band Neutrophils % (0-10) % Lymphocytes % (Manual) (20-40) % Atypical Lymphs % % Monocytes % (Manual) (2-10) % Eosinophils % (Manual) (0.7-5.8) % Basophils % (Manual) (0.1-1.2) Platelet Estimate RBC Morph Comment Puncture Site ABG pH (7.35-7.45) ABG pCO2 (35.0-45.0) mmHg ABG pO2 (80.0-100.0) mmHg ABG HCO3 (22.0-26.0) meq/L ABG O2 Saturation (96.0-97.0) % ABG Base Excess (-2-2.0) Karlos Test O2 Delivery Device FiO2 (21.00-100.00) % Sodium (136-145) mEq/L Potassium (3.5-5.1) mEq/L Chloride (98-107) mEq/L Carbon Dioxide (21-32) mEq/L Anion Gap (5-15) BUN (7-18) mg/dL Creatinine (0.55-1.02) mg/dL Est Cr Clr Drug Dosing mL/min Estimated GFR (MDRD) (>60) mL/min BUN/Creatinine Ratio (14-18) Glucose (74-106) mg/dL Calcium (8.5-10.1) mg/dL Phosphorus (2.6-4.7) mg/dL Magnesium (1.8-2.4) mg/dl Total Bilirubin (0.2-1.0) mg/dL AST (15-37) U/L ALT (14-59) U/L Alkaline Phosphatase (46-116) U/L Total Protein (6.4-8.2) g/dl Albumin (3.4-5.0) g/dl Globulin gm/dL Albumin/Globulin Ratio (1-2) TSH 3rd Generation (0.358-3.74) uIU/mL HCG, Qual (NEGATIVE) Urine Color Yellow (Yellow) Urine Appearance Clear (Clear) Urine pH 7.0 (5.0-8.0) Ur Specific [place] 1.020 (1.005-1.030) Urine Protein Negative (Negative) Urine Glucose (UA) Negative (Negative) Urine Ketones Negative (Negative) Urine Occult Blood Negative (Negative) Urine Nitrite Negative (Negative) Urine Bilirubin Negative (Negative) Urine Urobilinogen 0.2 (0.2-1.0) Ur Leukocyte Esterase Negative (Negative) Urine RBC Not seen (0-5) /hpf Urine WBC 0-5 (0-5) /hpf Ur Squamous Epith Cells 5-10 H (0-5) /hpf Urine Bacteria Few (FEW) /hpf Urine Mucus Few (FEW) /hpf Salicylates 0.9 L (2.8-20) mg/dL Urine Opiates Screen Negative (XYEEIS=462) Ur Buprenorphine Scrn Negative (CUTOFF=10) Ur Oxycodone Screen Negative (AVB5ZF=947) Urine Methadone Screen Negative (QVQHNR=387) Ur Propoxyphene Screen Negative (DBTYET=969) Acetaminophen (10-30) ug/mL Ur Barbiturates Screen Negative (UYEGAT=512) Ur Tricyclics Screen Negative (XRBIXI=807) Ur Phencyclidine Scrn Negative (CUTOFF=25) Ur Amphetamine Screen Negative (RXWDNB=773) U Methamphetamines Scrn Presumptive positive H (PJBQHP=666) U Benzodiazepines Scrn Negative (LNTPYW=920) U Cocaine Metab Screen Negative (LQIQBQ=926) U Marijuana (THC) Screen Presumptive positive H (CUTOFF=50) Ethyl Alcohol (0.00) gm% 08/07/18 08/08/18 08/08/18 Range/Units 18:23 04:40 04:40 WBC 7.90 (3.98-10.04) K/mm3 RBC 4.78 (3.98-5.22) M/mm3 Hgb 14.5 (11.2-15.7) gm/L Hct 44.1 (34.1-44.9) % MCV 92.3 (79.4-94.8) fl MCH 30.3 (25.6-32.2) pg MCHC 32.9 (32.2-35.5) g/dl RDW Std Deviation 42.3 (36.4-46.3) fL Plt Count 350 (182-369) K/mm3 MPV 9.9 (9.4-12.3) fl Neut % (Auto) 53.7 (34.0-71.1) % Lymph % (Auto) 30.6 (19.3-51.7) % Dougherty % (Auto) 8.2 (4.7-12.5) % Eos % (Auto) 6.1 H (0.7-5.8) Baso % (Auto) 1.0 (0.1-1.2) % Neut # (Auto) 4.24 (1.56-6.13) K/mm3 Lymph # (Auto) 2.42 (1.18-3.74) K/mm3 Dougherty # (Auto) 0.65 H (0.24-0.36) K/mm3 Eos # (Auto) 0.48 H (0.04-0.36) K/mm3 Baso # (Auto) 0.08 (0.01-0.08) K/mm3 Neutrophils % (Manual) (40-60) % Band Neutrophils % (0-10) % Lymphocytes % (Manual) (20-40) % Atypical Lymphs % % Monocytes % (Manual) (2-10) % Eosinophils % (Manual) (0.7-5.8) % Basophils % (Manual) (0.1-1.2) Platelet Estimate RBC Morph Comment Puncture Site Rt radial ABG pH 7.41 (7.35-7.45) ABG pCO2 38.8 (35.0-45.0) mmHg ABG pO2 91.0 (80.0-100.0) mmHg ABG HCO3 23.9 (22.0-26.0) meq/L ABG O2 Saturation 97.9 H (96.0-97.0) % ABG Base Excess -0.1 (-2-2.0) Karlos Test Positive O2 Delivery Device Room air FiO2 21.00 (21.00-100.00) % Sodium 138 (136-145) mEq/L Potassium 3.9 (3.5-5.1) mEq/L Chloride 105 (98-107) mEq/L Carbon Dioxide 24 (21-32) mEq/L Anion Gap 12.9 (5-15) BUN 7 (7-18) mg/dL Creatinine 0.7 (0.55-1.02) mg/dL Est Cr Clr Drug Dosing 120.51 mL/min Estimated GFR (MDRD) > 60 (>60) mL/min BUN/Creatinine Ratio 10.0 L (14-18) Glucose 102 (74-106) mg/dL Calcium 8.6 (8.5-10.1) mg/dL Phosphorus 3.6 (2.6-4.7) mg/dL Magnesium 1.9 (1.8-2.4) mg/dl Total Bilirubin 0.6 (0.2-1.0) mg/dL AST 16 (15-37) U/L ALT 23 (14-59) U/L Alkaline Phosphatase 65 (46-116) U/L Total Protein 6.5 (6.4-8.2) g/dl Albumin 3.4 (3.4-5.0) g/dl Globulin 3.1 gm/dL Albumin/Globulin Ratio 1.1 (1-2) TSH 3rd Generation (0.358-3.74) uIU/mL HCG, Qual (NEGATIVE) Urine Color (Yellow) Urine Appearance (Clear) Urine pH (5.0-8.0) Ur Specific [place] (1.005-1.030) Urine Protein (Negative) Urine Glucose (UA) (Negative) Urine Ketones (Negative) Urine Occult Blood (Negative) Urine Nitrite (Negative) Urine Bilirubin (Negative) Urine Urobilinogen (0.2-1.0) Ur Leukocyte Esterase (Negative) Urine RBC (0-5) /hpf Urine WBC (0-5) /hpf Ur Squamous Epith Cells (0-5) /hpf Urine Bacteria (FEW) /hpf Urine Mucus (FEW) /hpf Salicylates (2.8-20) mg/dL Urine Opiates Screen (MXNPZQ=427) Ur Buprenorphine Scrn (CUTOFF=10) Ur Oxycodone Screen (FIF7SH=572) Urine Methadone Screen (WSQDHP=236) Ur Propoxyphene Screen (KMTVYP=941) Acetaminophen (10-30) ug/mL Ur Barbiturates Screen (ZVHNJB=502) Ur Tricyclics Screen (ULABBN=632) Ur Phencyclidine Scrn (CUTOFF=25) Ur Amphetamine Screen (PZBKOI=371) U Methamphetamines Scrn (VWBYOK=106) U Benzodiazepines Scrn (BWSGRF=558) U Cocaine Metab Screen (JQFBAC=266) U Marijuana (THC) Screen (CUTOFF=50) Ethyl Alcohol (0.00) gm% Med Orders - Current: Current Medications Chlordiazepoxide HCl (Librium) 25 mg PO Q1H PRN PRN Reason: CIWAA >8 Miscellaneous Information (Remove Patch) 1 ea TRDERM 2100 ANNABEL Nicotine (Habitrol) 21 mg TRDERM 2100 ANNABEL Last Admin: 08/07/18 20:59 Dose: 21 mg Ondansetron HCl (Zofran) 4 mg IV Q4H PRN PRN Reason: Nausea/Vomiting Sodium Chloride (Saline Flush) 10 ml FLUSH ASDIRECTED PRN PRN Reason: Keep Vein Open Last Admin: 08/07/18 16:25 Dose: 10 ml Discontinued Medications Sodium Chloride (Normal Saline) 1,000 mls @ 999 mls/hr IV ONETIME ONE Stop: 08/07/18 17:04 Last Admin: 08/07/18 16:25 Dose: 999 mls/hr Lorazepam (Ativan) 1 mg IVPUSH ONETIME ONE Stop: 08/07/18 19:07 Last Admin: 08/07/18 19:10 Dose: 1 mg Lorazepam (Ativan) Confirm Administered Dose 2 mg .ROUTE .STK-MED ONE Stop: 08/07/18 19:08 Last Admin: 08/07/18 19:28 Dose: Not Given Nicotine (Habitrol) 21 mg TRDERM DAILY ANNABEL Potassium Chloride (Klor-Con M20) 20 meq PO BID [facility] Stop: 08/08/18 09:01 Last Admin: 08/08/18 08:04 Dose: 20 meq Sodium Chloride (Saline Flush) 10 ml FLUSH ASDIRECTED PRN PRN Reason: Keep Vein Open - Exam Quality Assessment: Reports: DVT Prophylaxis General: Reports: Alert, Oriented, Cooperative, No Acute Distress HEENT: Reports: Pupils Equal, Pupils Reactive, EOMI, Mucous Membr. Moist/Privateer Neck: Reports: Supple, Trachea Midline Lungs: Reports: Clear to Auscultation, Normal Respiratory Effort Cardiovascular: Reports: Regular Rate, Regular Rhythm GI/Abdominal Exam: Normal Bowel Sounds, Soft, Non-Tender, No Distention, No Abnormal Bruit (Female) Exam: Deferred Rectal (Female) Exam: Deferred Extremities: Normal Inspection, Normal Range of Motion, Non-Tender, No Pedal Edema, Normal Capillary Refill Skin: Reports: Warm, Dry, Intact Neurological: Reports: No New Focal Deficit Psy/Mental Status: Reports: Alert, Suicidal Ideation. Denies: Labile Mood, Anxious, Agitated, Homicidal Ideation, Hallucinations, Withdrawal Symptoms
[2018-08-08] MEDS ORDERED: Nicotine 21 MG/24 Hr Patch TRDERM ONE (13:30)
[2018-08-08] MEDS ORDERED: LORazepam 1 MG Tab PO ONE ×2 (13:43→15:33)
[2018-08-08 15:41] VITALS: BP 105/83
== END 2018-08-08 15:45 | DRG 885 ==
LOC: JD.ED 14:21 → JD.ICU 18:58
PROVIDERS: ADMIT Family Medicine; ATTEND Family Medicine
PROC: HZ2ZZZZ Detoxification Services for Substance Abuse Treatment (ICD-10-PCS; principal; 2018-08-08)
DX: F39 Unspecified mood [affective] disorder (principal); R45.851 Suicidal ideations; F19.20 Other psychoactive substance dependence, uncomplicated; E87.1 Hypo-osmolality and hyponatremia; F60.3 Borderline personality disorder; S10.93XA Contusion of unspecified part of neck, initial encounter; F41.9 Anxiety disorder, unspecified; F17.210 Nicotine dependence, cigarettes, uncomplicated; F32.9 Major depressive disorder, single episode, unspecified
CPT/HCPCS: 36415; 36600; 80053; 80306; 81001; 82803; 83735; 84100; 84443; 84703; 85007; 85025; 85027; 96360; 99284; 99285-25; A9270-GY; G0480; J2060; J7040

== ENCOUNTER 2019-09-27 16:56 | Emergency (ER) | payer MEDICAID, OTHER ==
[2019-09-27 17:05] VITALS: PULSE 101
[2019-09-27] MEDS ORDERED: Metoclopramide 10 MG/2 ML SDV IVPUSH ONE (17:39)
[2019-09-27] MEDS ORDERED: cloNIDine 0.1 MG Tab PO ONE (17:40)
[2019-09-27] MEDS ORDERED: LORazepam 2 MG/ML SDV IV ONE (17:40)
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
[2019-09-27] MEDS ORDERED: Dextrose 5%-Lactated Ringers 1,000 ML IV SCH (17:45)
[2019-09-27 18:43] LABS: ACETAMINOPHEN 0 ug/mL (10-30)
[2019-09-27] MEDS ORDERED: Levofloxacin 250 MG Tab PO ONE (20:02)
[2019-09-27 20:49] VITALS: BP 102/64
[2019-09-27] MEDS ORDERED: cloNIDine 0.1 MG Tab PO SCH (21:00)
--- NOTE | 2019-09-28 05:12 | CR ---
Chest: Portable view of the chest was obtained. Comparison: No prior chest x-ray. Heart size and mediastinum are normal. Lungs are clear with no acute parenchymal change. Bony structures are unremarkable. Impression: 1. Nothing acute is seen on portable chest x-ray. Diagnostic code #1 This report was dictated in MDT
== END 2019-09-27 21:05 | disposition other institution (70) ==
LOC: JD.ED 16:56
DX: F11.20 Opioid dependence, uncomplicated (principal); F15.10 Other stimulant abuse, uncomplicated; F12.20 Cannabis dependence, uncomplicated; F17.210 Nicotine dependence, cigarettes, uncomplicated; Z20.828 Contact with and (suspected) exposure to other viral communicable diseases; Z79.899 Other long term (current) drug therapy
CPT/HCPCS: 36415; 71045; 80053; 80306; 80307; 81001; 83735; 84484; 84703; 85025; 85610; 85652; 85730; 86140; 86803; 87086; 87184; 87186; 87340; 87449; 87635; 96361; 96374; 96375; 99283; A9270; J2060; J2765; J7121; 99284; G0433; U0002

== ENCOUNTER 2019-09-29 13:55 | Emergency (ER) | payer OTHER ==
[2019-09-29 14:05] VITALS: BP 118/83; PULSE 118
--- NOTE | 2019-09-29 14:45 | EDM.PDOCBH ---
ED HPI GENERAL MEDICAL PROBLEM - General Chief Complaint: Drug or Alcohol Abuse Stated Complaint: PSYCH EVAL Time Seen by Provider: 09/29/19 14:03 Source of Information: Reports: Patient History Limitations: Reports: No Limitations - History of Present Illness INITIAL COMMENTS - FREE TEXT/NARRATIVE: Patient is a 24 year old female brought in by [place] [employer] per th e request of [facility]. She has a long history of IV drug abuse including heroin and methamphetamine. She recently returned to [place] from [place] after being missing for 9 months. She states that she called her mother and she came and picked her up. She was seen in this emergency department on September 26 upon return to [place] for medical clearance to go the [facility] crisis bed for treatment. At that time she tested positive for opiates, methamphetamines, and marijuana, all of which she admitted to using. Today she left the [facility] and went to her friend "Sidney's" house. The last time she admits to using drugs was 4 days ago in [place] prior to coming back to [place]. She denies using drugs after leaving the [facility] today. She does not want to go to treatment for her drug use and states that she is no longer detoxing. If she is allowed to leave today, she plans to go stay at her friend's house who she states is sober and is a good support system. She does not want to attend outpatient treatment. She denies any nausea, vomiting, tremors, or headache. - Related Data Allergies Allergy/AdvReac Type Severity Reaction Status Date / Time No Known Allergies Allergy Verified 09/29/19 14:05 Home Meds: Home Meds . [No Known Home Meds] 09/29/19 [History] Past Medical History - Past Health History Medical/Surgical History: Denies Medical/Surgical History Other Cardiovascular History: Endocarditis Genitourinary History: Reports: Pyelonephritis, UTI, Recurrent Psychiatric History: Reports: Addiction, Anxiety, Other (See Below) Other Psychiatric History: BORDERLINE PERSONALITY DISORDER AND PTSD(witnessed a traumatic event Social & Family History - Family History Family Medical History: Noncontributory - Tobacco Use Smoking Status *Q: Current Every Day Smoker Years of Tobacco use: 10 Packs/Tins Daily: 1 - Caffeine Use Caffeine Use: Reports: None - Living Situation & Occupation Living situation: Reports: Single Occupation: Unemployed ED ROS GENERAL - Review of Systems Review Of Systems: See Below Constitutional: Reports: No Symptoms HEENT: Reports: No Symptoms Respiratory: Reports: No Symptoms Cardiovascular: Reports: No Symptoms Endocrine: Reports: No Symptoms GI/Abdominal: Reports: No Symptoms : Reports: No Symptoms Musculoskeletal: Reports: No Symptoms Skin: Reports: No Symptoms Neurological: Reports: No Symptoms. Denies: Confusion, Dizziness, Headache Psychiatric: Reports: No Symptoms. Denies: Agitation, Anxiety, Hallucinations, Homicidal Ideation, Suicidal Ideation Hematologic/Lymphatic: Reports: No Symptoms Immunologic: Reports: No Symptoms ED EXAM, BEHAVIORAL HEALTH - Physical Exam Exam: See Below Exam Limited By: No Limitations General Appearance: Alert, WD/WN, No Apparent Distress Eye Exam: Bilateral Eye: PERRL Respiratory/Chest: No Respiratory Distress, Lungs Clear, Normal Breath Sounds, No Accessory Muscle Use, Chest Non-Tender Cardiovascular: Normal Peripheral Pulses, Regular Rate, Rhythm, No Edema, No Gallop, No JVD, No Murmur, No Rub Neurological: Alert, Normal Mood/Affect, CN II-XII Intact, Normal Cognition, Normal Gait, Normal Reflexes, No Motor/Sensory Deficits, Oriented x 3. No: Tremor Psychiatric: Alert, Normal Affect, Normal Cognition, Normal Mood, Oriented, Other (cooperative. Answers all question appropriately and coherently.). No: Poor Eye Contact, Flight of Ideas, Homicidal Thoughts, Suicidal Plan, Suicidal Thoughts, Auditory Hallucinations, Visual Hallucinations, Paranoid Thoughts, Threatening Behavior Skin Exam: Warm, Dry, Intact COURSE, BEHAVIORAL HEALTH COMP - Course Vital Signs: Last Vital Signs Temp 98.9 F 09/29/19 14:03 Pulse 118 H 09/29/19 14:03 Resp 16 09/29/19 14:03 BP 118/83 09/29/19 14:03 Pulse Ox 97 09/29/19 14:03 Orders, Labs, Meds: Laboratory Tests 09/29/19 09/29/19 09/29/19 Range/Units 14:24 14:24 14:28 WBC 10.04 (3.98-10.04) K/mm3 RBC 5.01 (3.98-5.22) M/mm3 Hgb 14.6 (11.2-15.7) gm/dl Hct 45.3 H (34.1-44.9) % MCV 90.4 (79.4-94.8) fl MCH 29.1 (25.6-32.2) pg MCHC 32.2 (32.2-35.5) g/dl RDW Std Deviation 43.9 (36.4-46.3) fL Plt Count 392 H (182-369) K/mm3 MPV 9.6 (9.4-12.3) fl Neut % (Auto) 69.2 (34.0-71.1) % Lymph % (Auto) 18.1 L (19.3-51.7) % [place] % (Auto) 9.1 (4.7-12.5) % Eos % (Auto) 1.3 (0.7-5.8) Baso % (Auto) 2.0 H (0.1-1.2) % Neut # (Auto) 6.95 H (1.56-6.13) K/mm3 Lymph # (Auto) 1.82 (1.18-3.74) K/mm3 [place] # (Auto) 0.91 H (0.24-0.36) K/mm3 Eos # (Auto) 0.13 (0.04-0.36) K/mm3 Baso # (Auto) 0.20 H (0.01-0.08) K/mm3 Sodium (136-145) mEq/L Potassium (3.5-5.1) mEq/L Chloride (98-107) mEq/L Carbon Dioxide (21-32) mEq/L Anion Gap (5-15) BUN (7-18) mg/dL Creatinine (0.55-1.02) mg/dL Est Cr Clr Drug Dosing mL/min Estimated GFR (MDRD) (>60) mL/min BUN/Creatinine Ratio (14-18) Glucose (74-106) mg/dL Calcium (8.5-10.1) mg/dL Total Bilirubin (0.2-1.0) mg/dL AST (15-37) U/L ALT (14-59) U/L Alkaline Phosphatase (46-116) U/L Total Protein (6.4-8.2) g/dl Albumin (3.4-5.0) g/dl Globulin gm/dL Albumin/Globulin Ratio (1-2) Urine Color Yellow (Yellow) Urine Appearance Clear (Clear) Urine pH 7.0 (5.0-8.0) Ur Specific [place] 1.020 (1.005-1.030) Urine Protein Negative (Negative) Urine Glucose (UA) Negative (Negative) Urine Ketones Negative (Negative) Urine Occult Blood Negative (Negative) Urine Nitrite Negative (Negative) Urine Bilirubin Negative (Negative) Urine Urobilinogen 0.2 (0.2-1.0) Ur Leukocyte Esterase Negative (Negative) Urine RBC Not seen (0-5) /hpf Urine WBC Not seen (0-5) /hpf Ur Squamous Epith Cells 0-5 (0-5) /hpf Urine Bacteria Not seen (FEW) /hpf Urine Mucus Not seen (FEW) /hpf Urine Opiates Screen Negative (JTNFMM=133) Ur Buprenorphine Scrn Negative (CUTOFF=10) Ur Oxycodone Screen Negative (WDR0DP=045) Urine Methadone Screen Negative (ILZNXC=863) Ur Propoxyphene Screen Negative (LJZDBU=340) Ur Barbiturates Screen Negative (FIVAGC=033) Ur Tricyclics Screen Negative (IBWNOQ=603) Ur Phencyclidine Scrn Negative (CUTOFF=25) Ur Amphetamine Screen Presumptive positive H (MAXJNR=156) U Methamphetamines Scrn Presumptive positive H (YIUWMB=328) U Benzodiazepines Scrn Presumptive positive H (JZAGWQ=060) U Cocaine Metab Screen Negative (IAEILD=068) U Marijuana (THC) Screen Presumptive positive H (CUTOFF=50) 09/29/19 Range/Units 14:28 WBC (3.98-10.04) K/mm3 RBC (3.98-5.22) M/mm3 Hgb (11.2-15.7) gm/dl Hct (34.1-44.9) % MCV (79.4-94.8) fl MCH (25.6-32.2) pg MCHC (32.2-35.5) g/dl RDW Std Deviation (36.4-46.3) fL Plt Count (182-369) K/mm3 MPV (9.4-12.3) fl Neut % (Auto) (34.0-71.1) % Lymph % (Auto) (19.3-51.7) % [place] % (Auto) (4.7-12.5) % Eos % (Auto) (0.7-5.8) Baso % (Auto) (0.1-1.2) % Neut # (Auto) (1.56-6.13) K/mm3 Lymph # (Auto) (1.18-3.74) K/mm3 [place] # (Auto) (0.24-0.36) K/mm3 Eos # (Auto) (0.04-0.36) K/mm3 Baso # (Auto) (0.01-0.08) K/mm3 Sodium 140 (136-145) mEq/L Potassium 3.8 (3.5-5.1) mEq/L Chloride 106 (98-107) mEq/L Carbon Dioxide 23 (21-32) mEq/L Anion Gap 14.8 (5-15) BUN 8 (7-18) mg/dL Creatinine 0.9 (0.55-1.02) mg/dL Est Cr Clr Drug Dosing 92.11 mL/min Estimated GFR (MDRD) > 60 (>60) mL/min BUN/Creatinine Ratio 8.9 L (14-18) Glucose 139 H (74-106) mg/dL Calcium 8.8 (8.5-10.1) mg/dL Total Bilirubin 0.7 (0.2-1.0) mg/dL AST 473 H (15-37) U/L ALT 872 H (14-59) U/L Alkaline Phosphatase 157 H (46-116) U/L Total Protein 7.5 (6.4-8.2) g/dl Albumin 3.6 (3.4-5.0) g/dl Globulin 3.9 gm/dL Albumin/Globulin Ratio 0.9 L (1-2) Urine Color (Yellow) Urine Appearance (Clear) Urine pH (5.0-8.0) Ur Specific [place] (1.005-1.030) Urine Protein (Negative) Urine Glucose (UA) (Negative) Urine Ketones (Negative) Urine Occult Blood (Negative) Urine Nitrite (Negative) Urine Bilirubin (Negative) Urine Urobilinogen (0.2-1.0) Ur Leukocyte Esterase (Negative) Urine RBC (0-5) /hpf Urine WBC (0-5) /hpf Ur Squamous Epith Cells (0-5) /hpf Urine Bacteria (FEW) /hpf Urine Mucus (FEW) /hpf Urine Opiates Screen (XMIALK=214) Ur Buprenorphine Scrn (CUTOFF=10) Ur Oxycodone Screen (OKP8GM=371) Urine Methadone Screen (HRQAOG=755) Ur Propoxyphene Screen (XNXHHR=742) Ur Barbiturates Screen (EZFHMV=047) Ur Tricyclics Screen (SQBHBZ=448) Ur Phencyclidine Scrn (CUTOFF=25) Ur Amphetamine Screen (GYTXKP=762) U Methamphetamines Scrn (WWLZTM=201) U Benzodiazepines Scrn (YFKJQO=366) U Cocaine Metab Screen (NUTXFP=660) U Marijuana (THC) Screen (CUTOFF=50) Medical Clearance: 09/29/19 15:54 Hematology was found to be normal. Urinalysis was negative for infection. Urine drug screen showed positive for amphetamines, methamphetamines, benzodiazepines, and marijuana. She is negative for opiates. She was prescribed Ativan on her last ER visit, there for that explains the benzodiazepines. She did admit to using methamphetamine immediately prior to her mother picking her up at [place] which was early Saturday morning. It is possible that she is still testing positive from this use. She is negative for opiates indicating that she was truthful when she states she has not used heroin. I have been notified that the patient does have warrants, therefore if she is not committed today, she will be going to nursing home from the ER. respite worker, Ofelia, had spoke with the states erisa attorney and he has no knowledge of a committal or guardianship proceedings being in process for the patient. I have called and left a message for the states erisa attorney to discuss the case from a legal standpoint. 09/29/19 17:07 Spoke with the states erisa attorney, Steve Vargas. Since the patient is currently not a risk to herself or others, we do not have grounds to proceed with a commitment at this time. She is currently sober and cooperative. She does not want treatment. I was notified by law enforcement that she has warrents for her arrest in [facility]; therefore, she will be going to nursing home [facility]. I did call and speak with Poppy Olivas LCSW at [facility] to update her. She stated that the patients mother has not yet started the paperwork to petition the court for commitement pr guardianship. She stated that they will follow-up with her in nursing home tomorrow morning. Discharge instructions as documented. Departure - Departure Time of Disposition: 16:59 Disposition: Home, Self-Care 01 Condition: Good Clinical Impression: Heroin addiction, Methamphetamine abuse - Discharge Information Instructions: Finding Treatment for Addiction Referrals: PCP,None [Primary Care Provider] - Additional Instructions: You were brought to the emergency department today for evaluation for your heroin abuse. Blood work and a drug screen was completed. Drug screen was negative for opiates consistent with your report of not using heroin since arriving home. You are still positive for methamphetamine, however this could still be related to your last use on Saturday night. You verbalized that you do not want to go to treatment. I do recommend that you seek help for your drug addiction either on an inpatient or an outpatient basis, however, as we discussed it is your right to either decline or pursue treatment. I recommend that you follow-up with [facility] for ongoing treatment options. The number to contact them is [phone]. Return to the emergency department as needed. Sepsis Event Note (ED) - Evaluation Sepsis Screening Result: No Definite Risk
== END 2019-09-29 17:12 | disposition home or self-care (01) ==
LOC: JD.ED 13:55
DX: F11.20 Opioid dependence, uncomplicated (principal); F15.10 Other stimulant abuse, uncomplicated; F17.210 Nicotine dependence, cigarettes, uncomplicated
CPT/HCPCS: 36415; 80053; 80306; 81001; 85025; 99284

== ENCOUNTER 2020-03-28 02:26 | Emergency (ER) | payer MEDICAID, OTHER ==
[2020-03-28 02:37] VITALS: BP 128/84; PULSE 83
--- NOTE | 2020-03-28 02:54 | EDM.PDOC ---
ED HPI GENERAL MEDICAL PROBLEM - General Chief Complaint: Genitourinary Problem Stated Complaint: UTI/COVID SYMPTOMS Time Seen by Provider: 03/28/20 02:50 Source of Information: Reports: Patient, RN Notes Reviewed - History of Present Illness INITIAL COMMENTS - FREE TEXT/NARRATIVE: voiding dysuria, urgency, frequency for 2 days, worse this AM. Chills. No nausea or vomiting. also loss of taste and smell for several days. Recent covid exposure. No cough, chest pain or difficulty breathing. - Related Data Allergies Allergy/AdvReac Type Severity Reaction Status Date / Time No Known Allergies Allergy Verified 09/29/19 14:05 Home Meds: Home Meds Nitrofurantoin Monohyd/M-Cryst [Macrobid 100 mg Capsule] 100 mg PO BID #10 capsule 03/28/20 [Rx] Past Medical History - Past Health History Medical/Surgical History: Denies Medical/Surgical History Other Cardiovascular History: Endocarditis Genitourinary History: Reports: Pyelonephritis, UTI, Recurrent Psychiatric History: Reports: Addiction, Anxiety, Other (See Below) Other Psychiatric History: BORDERLINE PERSONALITY DISORDER AND PTSD(witnessed a traumatic event Social & Family History - Family History Family Medical History: No Pertinent Family History - Tobacco Use Tobacco Use Status *Q: Current Every Day Tobacco User Years of Tobacco use: 10 Packs/Tins Daily: 0.5 - Caffeine Use Caffeine Use: Reports: None - Recreational Drug Use Recreational Drug Use: Yes Drug Use in Last 12 Months: Yes Recreational Drug Type: Reports: Heroin Recreational Drug Use Frequency: Not Used In Over 6 Months - Living Situation & Occupation Living situation: Reports: Single Occupation: Unemployed ED ROS GENERAL - Review of Systems Review Of Systems: See Below Constitutional: Reports: Chills. Denies: Fever HEENT: Denies: Rhinitis, Throat Pain Respiratory: Denies: Shortness of Breath, Cough Cardiovascular: Denies: Chest Pain GI/Abdominal: Denies: Abdominal Pain, Nausea, Vomiting : Reports: Dysuria, Frequency, Urgency Musculoskeletal: Reports: Back Pain Skin: Reports: No Symptoms Neurological: Reports: No Symptoms ED EXAM, GENERAL - Physical Exam Exam: See Below General Appearance: Alert, Mild Distress Head: Atraumatic Neck: Supple Respiratory/Chest: No Respiratory Distress, Lungs Clear, Normal Breath Sounds Cardiovascular: Regular Rate, Rhythm Back Exam: No: CVA Tenderness (L), CVA Tenderness (R), Paraspinal Tenderness, Vertebral Tenderness Extremities: Normal Inspection Neurological: Alert, No Motor/Sensory Deficits Skin Exam: Warm, Dry, Normal Color Course - Vital Signs Last Recorded V/S: Last Vital Signs Temp 97.0 F 03/28/20 02:33 Pulse 83 03/28/20 02:33 Resp 15 03/28/20 02:33 BP 128/84 03/28/20 02:33 Pulse Ox 98 03/28/20 02:33 - Orders/Labs/Meds Orders: Active Orders 24 hr Category Date Time Status CORONAVIRUS COVID-19 PCR PHL Stat Lab 03/28/20 03:08 Ordered CULTURE URINE [RM] Stat Lab 03/28/20 02:34 Received Labs: Laboratory Tests 03/28/20 Range/Units 02:34 Urine Color Dark yellow (Yellow) Urine Appearance Cloudy H (Clear) Urine pH 7.0 (5.0-8.0) Ur Specific [place] 1.025 (1.005-1.030) Urine Protein 2+ H (Negative) Urine Glucose (UA) Negative (Negative) Urine Ketones Negative (Negative) Urine Occult Blood 1+ H (Negative) Urine Nitrite Positive H (Negative) Urine Bilirubin Negative (Negative) Urine Urobilinogen 2.0 H (0.2-1.0) Ur Leukocyte Esterase 3+ H (Negative) Urine RBC 10-20 H (0-5) /hpf Urine WBC 50-75 H (0-5) /hpf Urine WBC Clumps Moderate (NOT SEEN) /hpf Ur Squamous Epith Cells 0-5 (0-5) /hpf Urine Bacteria Many H (FEW) /hpf Urine Mucus Moderate H (FEW) /hpf Meds: Medications Discontinued Medications Generic Name Dose Route Start Last Admin Trade Name Freq PRN Reason Stop Dose Admin Nitrofurantoin Macrocrystals 100 mg 03/28/20 03:06 Macrobid PO 03/28/20 03:07 ONETIME ONE - Re-Assessments/Exams Free Text/Narrative Re-Assessment/Exam: 03/28/20 03:17 Pt has a UTI, will send covid screen to state. Discharge instr. as documented. Departure - Departure Time of Disposition: 03:11 Disposition: Home, Self-Care 01 Condition: Fair Clinical Impression: UTI (urinary tract infection) Qualifiers: Urinary tract infection type: acute cystitis Hematuria presence: with hematuria Qualified Code(s): N30.01 - Acute cystitis with hematuria - Discharge Information Prescriptions: Nitrofurantoin Monohyd/M-Cryst [Macrobid 100 mg Capsule] 100 mg PO BID #10 capsule Referrals: PCP,None [Primary Care Provider] - Forms: ED Department Discharge, ED Return to Work/School Form Additional Instructions: macrobid antibiotic 100 mg twice daily. Prescription has been sent to [facility] [address]. Drink plenty of water. Follow up clinic if not much better within 2 to 3 days as expected. Return to ED as needed. Sepsis Event Note (ED) - Evaluation Sepsis Screening Result: No Definite Risk - Focused Exam Vital Signs: Vital Signs Temp Pulse Resp BP Pulse Ox 03/28/20 02:33 97.0 F 83 15 128/84 98 - My Orders Last 24 Hours: My Active Orders 03/28/20 03:08 CORONAVIRUS COVID-19 PCR PHL Stat - Assessment/Plan Last 24 Hours: My Active Orders 03/28/20 03:08 CORONAVIRUS COVID-19 PCR PHL Stat
[2020-03-28] MEDS ORDERED: Nitrofurantoin Monohydrate/Macrocrystalline 100 MG Cap PO ONE (03:06)
== END 2020-03-28 03:25 | disposition home or self-care (01) ==
LOC: JD.ED 02:26
DX: N30.01 Acute cystitis with hematuria (principal); Z72.0 Tobacco use; Z20.822 Contact with and (suspected) exposure to COVID-19
CPT/HCPCS: 81001; 87086; 87088; 87186; 87635; 99283; A9270; U0002

== ENCOUNTER 2021-04-18 13:29 | Emergency (ER) | payer MEDICAID ==
[2021-04-18 14:02] VITALS: BP 134/98
[2021-04-18 14:23] LABS: ACETAMINOPHEN 0 ug/mL (10-30)
[2021-04-18 15:12] VITALS: PULSE 98
== END 2021-04-18 15:05 | disposition other institution (70) ==
LOC: JD.ED 13:29
DX: F15.10 Other stimulant abuse, uncomplicated (principal); F12.10 Cannabis abuse, uncomplicated; R00.0 Tachycardia, unspecified; Z72.0 Tobacco use
CPT/HCPCS: 36415; 80053; 80143; 80179; 80306; 80307; 81025; 84443; 85007; 85027; 93005; 99283-25

== ENCOUNTER 2022-06-03 12:22 | Emergency (ER) | payer SELFPAY ==
[2022-06-03 12:35] VITALS: BP 118/80; PULSE 103
[2022-06-03] MEDS ORDERED: cefTRIAXone 2 GM in Sodium Chloride 0.9% 100 ML IV ONE (13:25)
== END 2022-06-03 15:13 | disposition home or self-care (01) ==
LOC: JD.ED 12:22
DX: N12 Tubulo-interstitial nephritis, not specified as acute or chronic (principal); Z72.0 Tobacco use
CPT/HCPCS: 36415; 80053; 81001; 83605; 85025; 87040; 87086; 87088; 87186; 96365; 99283; J0696; J3490

== ENCOUNTER 2022-12-31 14:21 | Emergency (ER) | payer MEDICAID ==
[2022-12-31 17:15] VITALS: BP 112/83; PULSE 72
== END 2022-12-31 17:11 | disposition home or self-care (01) ==
LOC: JD.ED 14:21
DX: O20.9 Hemorrhage in early pregnancy, unspecified (principal); Z86.16 Personal history of COVID-19; Z3A.18 18 weeks gestation of pregnancy
CPT/HCPCS: 76815; 76815-26; 99282; 99284